=== PATIENT | female | born 1995 | race Caucasian/White ===

== ENCOUNTER 2016-12-23 01:35 | Inpatient (IN) | payer MEDICAID ==
[~2016-12-23] VITALS: Ht 154.9 cm; Wt 80.9 kg
[~2016-12-23 01:35] MED LIST: ASPI-664 PO; FOLI-49 PO; PRENAT PO
[2016-12-23 02:01] VITALS: Ht 154.9 cm; Wt 80.9 kg
[2016-12-23 02:02] VITALS: BP 113/49; PULSE 104; RESP 18
[2016-12-23 03:07] LABS: ADD UMIC YES; URINE BILIRUBIN (Dip) NEGATIVE (NEGATIVE); URINE BLOOD (Dip) 3+ (NEGATIVE); URINE COLOR LT. YELLOW (YELLOW); URINE GLUCOSE (Dip) NEGATIVE (NEGATIVE); URINE KETONES (Dip) NEGATIVE (NEGATIVE); URINE LEUKOCYTE ESTERASE (Dip) 1+ (NEGATIVE); URINE NITRITE (Dip) NEGATIVE (NEGATIVE); URINE TOTAL PROTEIN (Dip) NEGATIVE (NEGATIVE); URINE UROBILINOGEN (Dip) 0.2 E.U./dL (0.1-1.0)
[2016-12-23 03:23] LABS: SQUAMOUS EPITHELIAL CELL,UR MANY; URINE RBCS >200 /HPF (0)
[2016-12-23 03:24] LABS: BACTERIA,URINE MANY
[2016-12-23] MEDS ORDERED: KETOROLAC 30 MG INJ IM STA (03:31)
[2016-12-23] MEDS ORDERED: CEFAZOLIN 2 GM/50 ML (PMX) 50 ML IVPB ONE (04:00)
[2016-12-23] MEDS ORDERED: ACETAMINOPHEN 1000MG/100ML IV 100 ML IVPB ONE (04:00)
--- NOTE | 2016-12-23 04:12 | RADRPT ---
PROCEDURE: ULTRASOUND RENAL CLINICAL INDICATION: 21-year-old female with flank pain. TECHNIQUE: Multiple sonographic images of the kidneys were obtained. The images were reviewed on a PACS workstation. COMPARISON: None. FINDINGS: The kidneys are well visualized. The right kidney measures 11.2 cm in maximal length. The left kidne y measures 12.7 cm in maximal length. There are no focal areas of abnormal echogenicity. There is mi ld left-sided hydronephrosis. The urinary bladder has a small volume of urine without evidence for internal echoes or shadowing stones. IMPRESSION: Mild left-sided hydronephrosis. .Marcelo Shaffer MD, MD Date Time Electronically viewed and signed by .Marcelo Shaffer MD, on 12/23/2016 04:12 .M/
[2016-12-23] MEDS: LACTATED RINGER'S 1,000 ML IV SCH ×3 (04:19→20:13)
[2016-12-23] MEDS ORDERED: LACTATED RINGER'S 1,000 ML IV SCH (06:09)
--- NOTE | 2016-12-23 06:26 | TRIAGE ---
OB Triage Datetime Report Generated by CPN: 12/23/2016 06:26 Datetime: 12/23/2016 05:05 Pain Assessment Pain Scale: 6 Pain Presence: Constant Pain Type: Sharp; Ache Pain Location: Back Pain Goal: 3 Pain Relief Measures: Pain Medication Given; Comfort Measures Pain Assessment Comments: pt. states pain has decreased. Datetime: 12/23/2016 04:51 Stage of : OB Triage Labor Evaluation Frequency: 0 Monitor Mode: External Duration (sec)2399: 0 Pattern: Normal: <= 5 Contractions in 10 Minutes Resting Tone [place]: Relaxed Contraction Comments: uterine irritiability noted pt denies feeling uc's or cramping. Heart Rate FHR Baseline Rate: 130 Monitor Mode: External US Variability: Moderate 6-25 bpm Accelerations: 15X15 Decelerations: None Category: Category I Datetime: 12/23/2016 03:37 Labor Evaluation Frequency: x2 Monitor Mode: External Duration (sec)2399: 60-70 Pattern: Normal: <= 5 Contractions in 10 Minutes Resting Tone [place]: Relaxed Heart Rate FHR Baseline Rate: 135 Monitor Mode: External US Variability: Moderate 6-25 bpm Accelerations: 15X15 Decelerations: None Category: Category I Pain Assessment Pain Scale: 8 Pain Presence: Constant Pain Type: Sharp Pain Location: Back Pain Goal: 5 Pain Relief Measures: Comfort Measures Datetime: 12/23/2016 02:40 Labor Evaluation Frequency: x1 Monitor Mode: External Duration (sec)2399: 50 Quality: Mild Pattern: Normal: <= 5 Contractions in 10 Minutes Resting Tone [place]: Relaxed Contraction Comments: uterine irritiability noted. pt denies feeling any cramping or uc's. Heart Rate FHR Baseline Rate: 135 Monitor Mode: External US Variability: Moderate 6-25 bpm Accelerations: 15X15 Decelerations: None Category: Category I Datetime: 12/23/2016 02:22 Stage of : OB Triage Datetime: 12/23/2016 02:13 Stage of : OB Triage Datetime: 12/23/2016 01:53 Stage of : OB Triage Assessment Type: Triage Maternal Assessment Level of Consciousness: Fully Conscious DTR's/Clonus: DTRs 2+; No Clonus Headache: Temporal Blurred Vision: No Respiratory Effort: Unlabored Nausea/Vomiting: Denies RUQ Epigastric Pain: Denies Lower Extremities Edema: None Degree: None Upper Extremities Edema: None Degree: None Facial Edema: None Fall Risk Assessment History of Falling: (0) No Secondary Diagnosis: (0) No Ambulatory Aid: (0) Bedrest/Nurse Assist IV Therapy: (0) No Gait: (0) Normal/Bedrest/Immobile Mental Status: (0) Oriented to Own Ability Fall Score: 0 Fall Risk Score Definition: No Risk: No action required Labor Evaluation Frequency: 0 Monitor Mode: External Duration (sec)2399: 0 Pattern: Normal: <= 5 Contractions in 10 Minutes Resting Tone [place]: Relaxed Heart Rate FHR Baseline Rate: 135 Monitor Mode: External US Variability: Moderate 6-25 bpm Accelerations: 15X15 Decelerations: None Category: Category I Pain Assessment Pain Scale: 9 Pain Presence: Constant Pain Type: Sharp Pain Location: Back Pain Goal: 5 Pain Relief Measures: Comfort Measures Datetime: 12/23/2016 01:38 Time of Arrival: 12/23/2016 01:38 EGA: 29.6 Arrived By: Wheelchair Arrived From: Home Chief Complaint: back pain for 4 days Movement: Present Contractions: Denies/Absent Rupture of Membranes: Denies Vaginal Bleeding: None Vaginal Discharge: Denies Recent Sexual Intercouse: Denies Abdominal Trauma: Not Applicable Patient Complaints: Back Pain Time Provider Notified: 12/23/2016 02:15 Provider Notified: Eshaghian Initial Plan: NST Datetime: 11/08/2016 12:56 Labor Evaluation Frequency: OCCAS Monitor Mode: External Duration (sec)2399: 50 Quality: Mild Pattern: Normal: <= 5 Contractions in 10 Minutes Resting Tone [place]: Relaxed Heart Rate FHR Baseline Rate: 135 Monitor Mode: External US FHR Baseline Changes: No Baseline Change Variability: Moderate 6-25 bpm Accelerations: 15X15 Decelerations: None Category: Category I Datetime: 11/08/2016 12:00 Labor Evaluation Frequency: 0 Pattern: Normal: <= 5 Contractions in 10 Minutes Resting Tone [place]: Relaxed Heart Rate FHR Baseline Rate: 135 Monitor Mode: External US FHR Baseline Changes: No Baseline Change Variability: Moderate 6-25 bpm Accelerations: 15X15 Decelerations: None Category: Category I Datetime: 11/08/2016 11:03 Labor Evaluation Frequency: 0 Pattern: Normal: <= 5 Contractions in 10 Minutes Resting Tone [place]: Relaxed Heart Rate FHR Baseline Rate: 135 Monitor Mode: External US Variability: Moderate 6-25 bpm Accelerations: 15X15 Decelerations: None Category: Category I Datetime: 11/08/2016 10:34 Assessment Type: Admission Assessment Maternal Assessment Level of Consciousness: Fully Conscious DTR's/Clonus: DTRs 2+; No Clonus Headache: Denies Blurred Vision: No Respiratory Effort: Unlabored; Regular Rhythm; Equal Expansion Breath Sounds, Left: Clear and Equal Breath Sounds, Right: Clear and Equal Nausea/Vomiting: Denies RUQ Epigastric Pain: Denies Lower Extremities Edema: None Degree: None Upper Extremities Edema: None Degree: None Facial Edema: None Fall Risk Assessment History of Falling: (0) No Secondary Diagnosis: (0) No Ambulatory Aid: (0) Bedrest/Nurse Assist IV Therapy: (0) No Gait: (0) Normal/Bedrest/Immobile Mental Status: (0) Oriented to Own Ability Fall Score: 0 Fall Risk Score Definition: No Risk: No action required Datetime: 11/08/2016 10:33 Time of Arrival: 11/08/2016 10:12 EGA: 23.3 Arrived By: Ambulatory Arrived From: Home Chief Complaint: LEAKING Movement: Decreased Contractions: Denies/Absent Rupture of Membranes: Denies Vaginal Bleeding: None Vaginal Discharge: Denies Recent Sexual Intercouse: Yes Abdominal Trauma: Not Applicable Patient Complaints: Other Time Provider Notified: 11/08/2016 10:58 Provider Notified: DR DE LEON Initial Plan: NST, CERVICAL LENGHT AND RODRI Datetime: 10/22/2016 07:50 Fall Score: 0 Fall Risk Score Definition: No Risk: No action required Datetime: 10/22/2016 07:49 EGA: 21.0 Additional Patient Complaints: PT YET TO FEEL FM DUE TO GESTATIONAL AGE.
--- NOTE | 2016-12-23 06:59 | HP ---
DATE OF ADMISSION: 12/23/2016 HISTORY OF PRESENT ILLNESS: The patient is a 21-year-old 1 with intrauterine at 2 9 weeks 6 days. Estimated date of confinement is 03/04/2017, complaining of back pain for 4 days. She vomited once. She is also reporting some lower pelvic pain at the midline. She denies any dysu yue. She said she had a fever Friday morning. She did not check her temperature. No hematuria. PAST MEDICAL HISTORY: Negative. PAST SURGICAL HISTORY: None. ALLERGIES: NO KNOWN DRUG ALLERGIES. PHYSICAL EXAMINATION: VITAL SIGNS: Blood pressure 113/49, temperature 98.2. BACK: On examination, there is 2 to 3+ left CVA tenderness, right none. ABDOMEN: Soft, nontender, gravid. EXTREMITIES: Nontender, no edema. ASSESSMENT: 1. Intrauterine at 29 weeks 6 days. 2. Presumed left pyelonephritis. PLAN: Admit to [address] [place] [address], IV Ancef 2 grams q. 8 hours, a CBC, give her [place] 5/325 one tab every 4 hours p.r.n. Of note, a renal ultrasound showed both kidneys measuring normally, no stone, slight hydronephrosis on the left side, otherwise normal. Urinalysis is clear with negative nitrites, 3+ blood, 1+ leukoc yte esterase with many bacteria, white blood cells, and red blood cells. Dictated By: JAMARCUS HEDRICK/MARY JANE Conf#: [id number] DID#: [id number]
[2016-12-23] MEDS: HYDROCODONE/APAP (5/325) TAB PO PRN ×5 (07:36→20:18)
[2016-12-23 07:47] LABS: BASOPHILS % 0.3 % (0.0-2.0); EOSINOPHILS # 0.1 10^3/ul (0.0-0.5); EOSINOPHILS % 0.5 % (0.0-7.0); HEMATOCRIT 30.8 % (37.0-47.0); HEMOGLOBIN 10.6 g/dl (12.0-16.0); LYMPHOCYTES # 1.5 10^3/ul (0.8-2.9); MEAN CORPUSCULAR HEMOGLOBIN 30.4 pg (29.0-33.0); MEAN CORPUSCULAR HGB CONC 34.6 g/dl (32.0-37.0); MEAN CORPUSCULAR VOLUME 87.8 fl (72.0-104.0); MONOCYTE # 0.9 10^3/ul (0.3-0.9); MONOCYTES % 7.3 % (0.0-13.0); NEUTROPHIL # 10.1 10^3/ul (1.6-7.5); NEUTROPHILS % 79.9 % (30.0-74.0); PLATELET COUNT 300 10^3/UL (140-440); RED BLOOD COUNT 3.51 10^6/ul (4.20-5.40); UNCORRECTED WBC 12.6 10^3/ul (4.8-10.8); WHITE BLOOD COUNT 12.6 10^3/ul (4.8-10.8)
[2016-12-23 07:57] LABS: CONDITION 1
[2016-12-23] MEDS: ONDANSETRON 4 MG TAB PO PRN ×3 (08:59→23:50)
[2016-12-23] MEDS ORDERED: MULTIVIT/MIN/FOLATE/IRON/PREN TAB PO SCH (09:00)
[2016-12-23] MEDS: CEFAZOLIN 2 GM/50 ML (PMX) 50 ML IV SCH ×2 (12:29→21:22)
[2016-12-24] MEDS: HYDROCODONE/APAP (5/325) TAB PO PRN ×3 (00:30→09:02)
[2016-12-24] MEDS: LACTATED RINGER'S 1,000 ML IV SCH ×3 (03:36→20:30)
[2016-12-24] MEDS: CEFAZOLIN 2 GM/50 ML (PMX) 50 ML IV SCH (06:00)
--- NOTE | 2016-12-24 07:11 | QN ---
Documentation Comment patient seen and evaluated complaining of left flank pain vs stable afebrile abod grivid, left cva tenderness extremity no edema no calf tendernss fhr cat 1 toco no ctx a/ iup at 30 ga, currently on antibiotic tx for pylonephritis p/ continue present managment f/u urine culture social work consult for history of marijuana use EVELIN DE LEON MD Dec 24, 2016 07:11
[2016-12-24] MEDS: ONDANSETRON 4 MG TAB PO PRN ×2 (08:25→14:13)
[2016-12-24 08:48] LABS: BARBITURATES NEGATIVE (NEGATIVE); BENZODIAZEPINES NEGATIVE (NEGATIVE); CANNABINOIDS NEGATIVE (NEGATIVE); COCAINE NEGATIVE (NEGATIVE)
[2016-12-24 08:50] LABS: OPIATES POSITIVE (NEGATIVE)
[2016-12-24] MEDS: FERROUS SULFATE (EC) 325 MG TAB PO SCH ×2 (09:01→21:11)
[2016-12-24] MEDS: MULTIVIT/MIN/FOLATE/IRON/PREN TAB PO SCH (09:02)
[2016-12-24] MEDS ORDERED: CEFTRIAXONE 2 GM INJ IVPB SCH (11:00)
[2016-12-24] MEDS ORDERED: ACETAMINOPHEN 325 MG TAB PO PRN (11:00)
[2016-12-24] MEDS: CEFTRIAXONE 1 GM/NS 50 ML IVPB SCH (11:26)
[2016-12-24] MEDS: SOD CHLORIDE 0.9% 1,000 ML IV SCH (20:30)
[2016-12-25] MEDS: LACTATED RINGER'S 1,000 ML IV SCH ×3 (04:30→21:10)
[2016-12-25] MEDS: SOD CHLORIDE 0.9% 1,000 ML IV SCH ×3 (05:06→21:14)
[2016-12-25] MEDS: morphine 4 MG/ML VIAL IV PRN ×2 (05:39→11:25)
--- NOTE | 2016-12-25 07:42 | QN ---
Documentation Comment patient seen and evaluated no complaints patient feels back pain has improved significantly since admission vs stable afebrile abd gravid nt, mild left cva tenderness extremity no edema no calft tenderness a/ iup at 30 wks ga, pyelonephritis currently on iv antibiotics p/ f.u urine culture continue present management EVELIN DE LEON MD Dec 25, 2016 07:42
[2016-12-25] MEDS: MULTIVIT/MIN/FOLATE/IRON/PREN TAB PO SCH (09:03)
[2016-12-25] MEDS: FERROUS SULFATE (EC) 325 MG TAB PO SCH ×2 (09:03→21:07)
[2016-12-25] MEDS: ONDANSETRON 4 MG TAB PO PRN ×3 (11:34→23:09)
[2016-12-25] MEDS: CEFTRIAXONE 1 GM/NS 50 ML IVPB SCH (12:18)
[2016-12-25] MEDS: HYDROCODONE/APAP (5/325) TAB PO PRN ×2 (13:37→16:36)
[2016-12-25] MEDS: HYDROCODONE/APAP (10/325) TAB PO PRN (20:19)
[2016-12-25] MEDS ORDERED: MEPERIDINE 50 MG INJ IM ONE (22:00)
[2016-12-26] MEDS: SOD CHLORIDE 0.9% 1,000 ML IV SCH ×3 (05:15→20:30)
[2016-12-26] MEDS: ONDANSETRON 4 MG TAB PO PRN ×2 (05:34→21:17)
[2016-12-26] MEDS: MEPERIDINE 50 MG INJ IM PRN ×2 (07:37→14:52)
[2016-12-26] MEDS: CEFTRIAXONE 1 GM/NS 50 ML IVPB SCH (11:27)
[2016-12-26] MEDS: FERROUS SULFATE (EC) 325 MG TAB PO SCH ×2 (11:27→20:39)
[2016-12-26] MEDS: MULTIVIT/MIN/FOLATE/IRON/PREN TAB PO SCH (11:27)
--- NOTE | 2016-12-26 14:34 | RADRPT ---
PROCEDURE: MRI abdomen without contrast CLINICAL INDICATION: Abdominal pain TECHNIQUE: An MRI of the abdomen was performed utilizing a high field MRI scanner with the following pulsed seq uences: Axial T2 fast spin-echo, axial T2 non-fat saturation fast spin-echo, axial T1 gradient echo in-phase and opposed-phase. Noncontrast fat sat T1-weighted images were also obtained. Coronal T2 and fat-saturated T2-weighted images were also obtained. COMPARISON: None FINDINGS: uterus is partially visualized with anterior placenta in cephalic presentation of the fetus. Fine detail of the structures cannot be assessed with this technique. There is trace bilateral pleural fluid present. There is bilateral mild hydronephrosis which appear symmetric extending to below the field of view a nd this may be related to compression from the gravid uterus. No significant visible. Nephric infl ammatory changes are present. There is uniform signal intensity of the liver without biliary ductal dilatation or gross evidence o f choledocholithiasis. The gallbladder is partially collapsed with no visible surrounding inflammat ory changes. The pancreatic parenchyma is partially obscured secondary to susceptibility. There is a mildly dilated air filled colon seen with distended / mildly dilated loops of small bowel in the upper abdomen that are indeterminate. There is trace free fluid within the abdomen. No duke ss enlarged lymph nodes are present. The aorta is grossly within normal limits. Flow void is seen in the portal vein and the hepatic vein. There is no acute osseous abnormality. IMPRESSION: Distended and mildly dilated small and large bowel is seen with air-fluid levels and this could repr esent an ileus possibly related to bowel inflammation or infection. Bilateral mild hydronephrosis is present which may be related to the gravid uterus. RPTAT: AA .Tad Crenshaw MD, MD Date Time Electronically viewed and signed by .Tad Crenshaw MD, MD on 12/26/2016 14:34 .J/
[2016-12-26] MEDS: HYDROCODONE/APAP (10/325) TAB PO PRN ×2 (16:58→21:13)
[2016-12-26] MEDS ORDERED: SENNA TAB PO PRN (19:30)
[2016-12-26] MEDS: LACTATED RINGER'S 1,000 ML IV SCH ×3 (20:30→22:15)
[2016-12-26] MEDS: DOCUSATE SODIUM 100 MG CAP PO SCH (20:39)
--- NOTE | 2016-12-26 20:40 | QN ---
Documentation Comment patient seen and evaluated complaining of left flank pain vs stable afebrile lung cta b/l abdom gravid, left cva tenderness extremity no edema no calf tenderness a/ iup at 30 wks ga 1/pylonophritis/ b/l hydronephrosis 2/ suspected ileus p/ continue iv antibiotic GI Consult tomorrow EVELIN DE LEON MD Dec 26, 2016 20:40
[2016-12-26] MEDS: CEFTAZIDIME 1GM/50 ML (PMX) 50 ML IVPB SCH (22:26)
[2016-12-27] MEDS: MEPERIDINE 50 MG INJ IM PRN ×2 (00:51→05:34)
[2016-12-27] MEDS: HYDROCODONE/APAP (10/325) TAB PO PRN ×5 (02:27→22:00)
[2016-12-27] MEDS: LACTATED RINGER'S 1,000 ML IV SCH ×4 (04:30→23:21)
[2016-12-27] MEDS: CEFTAZIDIME 1GM/50 ML (PMX) 50 ML IVPB SCH ×3 (05:34→21:50)
[2016-12-27] MEDS: ONDANSETRON 4 MG TAB PO PRN (05:42)
[2016-12-27 06:36] LABS: CREATININE 0.67 mg/dl (0.44-1.00)
[2016-12-27] MEDS: FERROUS SULFATE (EC) 325 MG TAB PO SCH ×2 (09:00→21:03)
[2016-12-27] MEDS: MULTIVIT/MIN/FOLATE/IRON/PREN TAB PO SCH (09:00)
--- NOTE | 2016-12-27 09:46 | CONS ---
Date/Time of Note Date/Time of Note DATE: 12/27/16 TIME: 09:35 Assessment/Plan Assessment/Plan Additional Assessment/Plan Abdominal pain Nausea Vomiting Constipation * Evaluate if secondary to UTI versus MRI finding of ileus * Continue clear diet * CMP * Stool OB * Bowel regimen UTI * Continue antibiotic treatment Intrauterine * Continue OB recommendations Further recommendations depend on clinical course Patient seen in collaboration with Dr. Hansen Consultation Date/Type/Reason Admit Date/Time Dec 23, 2016 at 06:00 Hx of Present Illness 21 YO F reports sharp LUQ abdominal that radiates to back for the last 2 weeks. Pt states that the pain began to worsen this past Friday. Pt reports increased nausea and vomiting. Pt denies hematemesis. Pt states last episode of non bloody bilious vomiting was yesterday. Pt reports fever on Friday and denies chills. Pt states the last time she had a bowel movement was four days ago. Pt states that when she voids the pain in abdomen improves but she denies odor from urine. Pt reports not completing abx treatemen for previous UTI that was treated here. Past Medical History Medical History: no pertinent history Past Surgical History Past Surgical Hx: no surgical history Social History Alcohol Use: none Exam/Review of Systems Vital Signs Vitals Intake and Output 12/26/16 12/26/16 12/27/16 15:00 23:00 07:00 Intake Total 300 ml 2475 ml Output Total 1650 ml Balance 300 ml 825 ml Exam Constitutional: alert, oriented, well developed Psych: nl mood/affect Head: normocephalic Eyes: EOMI, nl conjunctiva, nl lids, nl sclera ENMT: mucosa pink and moist, nl external ears & nose, nl lips & teeth, nl nasal mucosa & septum Respiratory: normal air movement Cardiovascular: regular rate and rhythm Gastrointestinal: soft, tender (diffuse) Neurological: HEARING AID ASSISTANT II-XII intact Results Result Diagram: 12/23/16 0649 12/27/16 0530 Results 24 hrs Laboratory Tests Test 12/27/16 05:30 Blood Urea Nitrogen 4 L Creatinine 0.67 Medications Medications Current Medications Lactated Ringer's (Lr) 1,000 ml @ 125 mls/hr Q8H IV Last administered on t 05:42; Admin Dose 125 MLS/HR; Start 12/23/16 at 04:30 Ondansetron HCl (Zofran Tab) 4 mg Q6H PRN PO NAUSEA AND/OR VOMITING Last administered on 12/27/16 05:42; Admin Dose 4 MG; Start 12/23/16 at 09:00 Ferrous Sulfate (Ferrous Sulfate (Ec)) 325 mg BID PO Last administered on 20:39; Admin Dose 325 MG; Start 12/24/16 at 09:00 Prenat Multivit/ Blow Molding Machine Operator/Iron/Folic Ac ( S) 1 tab DAILY PO Last administered on 12/26/16 11:27; Admin Dose 1 TAB; Start 12/24/16 at 09:00 Morphine Sulfate (morphine) 3 mg Q4H PRN IV PAIN LEVEL 6-10 Last administered on 12/25/16 11:25; Admin Dose 3 MG; Start 12/24/16 at 11:00 Acetaminophen (Tylenol Tab) 650 mg Q6H PRN PO PAIN AND OR ELEVATED TEMP Last administered on 12/25/16 12:47; Admin Dose 650 MG; Start 12/24/16 at 11:00 Acetaminophen/ Hydrocodone Bitart ([place] (5/325)) 1 tab Q4H PRN PO PAIN LEVEL 7 -10 Last administered on 12/25/16 16:36; Admin Dose 1 TAB; Start 12/25/16 at 13: 30 Acetaminophen/ Hydrocodone Bitart ([place] (10/325)) 2 tab Q4H PRN PO PAIN Last administered on 12/27/16 08:29; Admin Dose 2 TAB; Start 12/25/16 at 17:30 Meperidine HCl 50 mg 50 mg Q4H PRN IM PAIN Last administered on 12/27/16 05:34 ; Admin Dose 50 MG; Start 12/26/16 at 00:30 Ceftazidime (Fortaz 1gm/50 ml (Pmx)) 50 ml @ 100 mls/hr Q8 IVPB Last administered on 12/27/16 05:34; Admin Dose 100 MLS/HR; Start 12/26/16 at 22:00 Docusate Sodium (Colace) 100 mg BID PO Last administered on 12/26/16 20:39; Admin Dose 100 MG; Start 12/26/16 at 21:00 Senna (Senokot) 2 tab BID PRN PO CONSTIPATION Last administered on 12/26/16t 20: 12; Admin Dose 2 TAB; Start 12/26/16 at 19:30 ROBIN AVILEZ Dec 27, 2016 09:45
[2016-12-27] MEDS ORDERED: BISACODYL 10 MG SUPP PR PRN (10:00)
[2016-12-27] MEDS ORDERED: POLYETHYLENE GLYCOL 17 GM PACKET GTB SCH (10:00)
[2016-12-27] MEDS: DOCUSATE SODIUM 100 MG CAP PO SCH ×2 (11:52→21:03)
[2016-12-27 13:11] LABS: HAAIG REFLEX REFLEX FILED
[2016-12-27 13:27] LABS: ALBUMIN 2.7 g/dl (3.3-4.9); CHLORIDE 101 mmol/L (97-110)
[2016-12-27 13:28] LABS: POTASSIUM 3.4 mmol/L (3.5-5.1); SODIUM 135 mmol/L (135-144)
[2016-12-27 13:30] LABS: ALANINE AMINOTRANSFERASE 33 IU/L (13-69); ALBUMIN/GLOBULIN RATIO 1.08; ALKALINE PHOSPHATASE 122 IU/L (42-121); AMYLASE 37 U/L (11-123); ANION GAP 16 (8-16); ASPARTATE AMINO TRANSFERASE 26 IU/L (15-46); BILIRUBIN,INDIRECT 0.5 mg/dl (0-1.1); BILIRUBIN,TOTAL 0.5 mg/dl (0.2-1.3); BLOOD UREA NITROGEN 3 mg/dl (7-20); CARBON DIOXIDE 21 mmol/L (21-31); CREATININE 0.61 mg/dl (0.44-1.00); GLUCOSE 61 mg/dl (70-220); TOTAL PROTEIN 5.2 g/dl (6.1-8.1)
[2016-12-27 13:31] LABS: CALCIUM 8.4 mg/dl (8.4-10.2)
[2016-12-27 14:19] LABS: HEPATITIS B CORE ANTIBODY NEGATIVE (NEGATIVE)
[2016-12-27] MEDS: POLYETHYLENE GLYCOL 17 GM PACKET PO SCH (21:21)
[2016-12-28] MEDS: CEFTAZIDIME 1GM/50 ML (PMX) 50 ML IVPB SCH ×3 (06:14→21:53)
[2016-12-28] MEDS: HYDROCODONE/APAP (10/325) TAB PO PRN (06:24)
[2016-12-28] MEDS: LACTATED RINGER'S 1,000 ML IV SCH ×2 (07:44→20:34)
--- NOTE | 2016-12-28 08:35 | CONS ---
Date/Time of Note Date/Time of Note DATE: 12/28/16 TIME: 08:34 Assessment/Plan Assessment/Plan Chief Complaint/Hosp Course 21 YO F reports sharp LUQ abdominal that radiates to back for the last 2 weeks. Pt states that the pain began to worsen this past Friday. Pt reports increased nausea and vomiting. Pt denies hematemesis. Pt states last episode of non bloody bilious vomiting was yesterday. Pt reports fever on Friday and denies chills. Pt states the last time she had a bowel movement was four days ago. Pt states that when she voids the pain in abdomen improves but she denies odor from urine. Pt reports not completing abx treatemen for previous UTI that was treated here. Problems: Additional Assessment/Plan Abdominal pain Nausea Vomiting Constipation * Evaluate if secondary to UTI versus MRI finding of ileus * Advance diet as tolerate * Review lab * Stool OB, negative * Bowel regimen UTI * Continue antibiotic treatment Intrauterine * Continue OB recommendations Further recommendations depend on clinical course Patient seen in collaboration with Dr. Hansen Consultation Date/Type/Reason Admit Date/Time Dec 23, 2016 at 06:00 Initial Consult Date Type of Consultation: GI 24 HR Interval Summary Free Text/Dictation Reports bowel movements yesterday Repeat MRI ordered Will advance diet as tolerated Exam/Review of Systems Vital Signs Vitals Intake and Output 12/27/16 12/27/16 12/28/16 15:00 23:00 07:00 Intake Total 1045 ml 1090 ml 1215 ml Output Total 800 ml 800 ml 700 ml Balance 245 ml 290 ml 515 ml Exam Constitutional: alert, oriented, well developed Psych: nl mood/affect Head: normocephalic Eyes: EOMI, nl conjunctiva, nl lids, nl sclera ENMT: mucosa pink and moist, nl external ears & nose, nl lips & teeth, nl nasal mucosa & septum Respiratory: normal air movement Cardiovascular: regular rate and rhythm Gastrointestinal: soft, tender (diffuse) Neurological: PESTICIDE APPLICATOR II-XII intact Results Result Diagram: 12/27/16 1215 Results 24 hrs Laboratory Tests Test 12/27/16 11:50 12/27/16 12:15 Stool Occult Blood NEGATIVE Alanine Aminotransferase (ALT/SGPT) 33 Albumin 2.7 L Albumin/Globulin Ratio 1.08 Alkaline Phosphatase 122 H Amylase Level 37 Anion Gap 16 Aspartate Amino Transf (AST/SGOT) 26 Blood Urea Nitrogen 3 L Calcium Level 8.4 Carbon Dioxide Level 21 Chloride Level 101 Creatinine 0.61 Direct Bilirubin 0.00 Globulin 2.50 Glucose Level 61 L Hepatitis B Core Total Antibody NEGATIVE Hepatitis B Surface Antigen NEGATIVE Hepatitis C Antibody NEGATIVE Indirect Bilirubin 0.5 Lipase 32 Potassium Level 3.4 L Sodium Level 135 Total Bilirubin 0.5 Total Protein 5.2 L Medications Medications Current Medications Lactated Ringer's (Lr) 1,000 ml @ 125 mls/hr Q8H IV Last administered on 07:44; Admin Dose 125 MLS/HR; Start 12/23/16 at 04:30 Ondansetron HCl (Zofran Tab) 4 mg Q6H PRN PO NAUSEA AND/OR VOMITING Last administered on 12/27/16 05:42; Admin Dose 4 MG; Start 12/23/16 at 09:00 Ferrous Sulfate (Ferrous Sulfate (Ec)) 325 mg BID PO Last administered on 21:03; Admin Dose 325 MG; Start 12/24/16 at 09:00 Prenat Multivit/ [place]/Iron/Folic Ac ( S) 1 tab DAILY PO Last administered on 12/26/16 11:27; Admin Dose 1 TAB; Start 12/24/16 at 09:00 Morphine Sulfate (morphine) 3 mg Q4H PRN IV PAIN LEVEL 6-10 Last administered on 12/25/16 11:25; Admin Dose 3 MG; Start 12/24/16 at 11:00 Acetaminophen (Tylenol Tab) 650 mg Q6H PRN PO PAIN AND OR ELEVATED TEMP Last administered on 12/25/16 12:47; Admin Dose 650 MG; Start 12/24/16 at 11:00 Acetaminophen/ Hydrocodone Bitart ([place] (5/325)) 1 tab Q4H PRN PO PAIN LEVEL 7 -10 Last administered on 12/25/16 16:36; Admin Dose 1 TAB; Start 12/25/16 at 13: 30 Acetaminophen/ Hydrocodone Bitart ([place] (10/325)) 2 tab Q4H PRN PO PAIN Last administered on 12/28/16 06:24; Admin Dose 2 TAB; Start 12/25/16 at 17:30 Meperidine HCl 50 mg 50 mg Q4H PRN IM PAIN Last administered on 12/27/16 05:34 ; Admin Dose 50 MG; Start 12/26/16 at 00:30 Ceftazidime (Fortaz 1gm/50 ml (Pmx)) 50 ml @ 100 mls/hr Q8 IVPB Last administered on 12/28/16 06:14; Admin Dose 100 MLS/HR; Start 12/26/16 at 22:00 Docusate Sodium (Colace) 100 mg BID PO Last administered on 12/27/16 21:03; Admin Dose 100 MG; Start 12/26/16 at 21:00 Senna (Senokot) 2 tab BID PRN PO CONSTIPATION Last administered on 12/26/16 20: 12; Admin Dose 2 TAB; Start 12/26/16 at 19:30 Bisacodyl (Dulcolax Supp) 10 mg DAILY PRN DC CONSTIPATION Last administered on 12/27/16 10:21; Admin Dose 10 MG; Start 12/27/16 at 10:00 Polyethylene Glycol (Miralax) 17 gm BID PO Last administered on 12/27/16 21:21 ; Admin Dose 17 GM; Start 12/27/16 at 21:00 ROBIN AVILEZ Dec 28, 2016 08:35
[2016-12-28] MEDS: MULTIVIT/MIN/FOLATE/IRON/PREN TAB PO SCH (08:47)
[2016-12-28] MEDS: DOCUSATE SODIUM 100 MG CAP PO SCH ×2 (08:47→21:26)
[2016-12-28] MEDS: FERROUS SULFATE (EC) 325 MG TAB PO SCH ×2 (08:47→21:26)
[2016-12-28] MEDS: POLYETHYLENE GLYCOL 17 GM PACKET PO SCH ×2 (08:47→21:00)
--- NOTE | 2016-12-28 12:13 | QN ---
Documentation Comment pt feeling better no back pain vss no fevers sp bm A/p for MRI for eval of illius. continue care GAVIN HOLGUIN MD Dec 28, 2016 12:13
[2016-12-28 15:01] LABS: BASOPHILS % 0.2 % (0.0-2.0); EOSINOPHILS # 0.2 10^3/ul (0.0-0.5); EOSINOPHILS % 1.7 % (0.0-7.0); HEMATOCRIT 28.7 % (37.0-47.0); HEMOGLOBIN 9.7 g/dl (12.0-16.0); LYMPHOCYTES # 1.3 10^3/ul (0.8-2.9); LYMPHOCYTES % 10.8 % (18.0-55.0); MEAN CORPUSCULAR HEMOGLOBIN 30.1 pg (29.0-33.0); MEAN CORPUSCULAR HGB CONC 33.6 g/dl (32.0-37.0); MEAN CORPUSCULAR VOLUME 89.6 fl (72.0-104.0); MEAN PLATELET VOLUME 7.3 fl (7.4-10.4); MONOCYTES % 8.8 % (0.0-13.0); NEUTROPHIL # 9.4 10^3/ul (1.6-7.5); NEUTROPHILS % 78.5 % (30.0-74.0); PLATELET COUNT 297 10^3/UL (140-440); RED BLOOD COUNT 3.21 10^6/ul (4.20-5.40); RED CELL DISTRIBUTION WIDTH 14.8 % (11.5-14.5); UNCORRECTED WBC 11.9 10^3/ul (4.8-10.8); WHITE BLOOD COUNT 11.9 10^3/ul (4.8-10.8)
[2016-12-28 15:23] LABS: CONDITION 1
[2016-12-28 15:24] LABS: LH ANALYZER COMMENTS 1
--- NOTE | 2016-12-28 17:06 | RADRPT ---
PROCEDURE: MRI abdomen / MRCP CLINICAL INDICATION: Flank and abdominal pain. Evaluate small bowel ileus versus obstruction TECHNIQUE: MRI of the abdomen is performed without contrast utilizing axial T2 and T2 fat suppress ion sequences as well as in and out of phase imaging. COMPARISON: MRI 12/26/2016 FINDINGS: Visualized lower thorax: There is no evidence for consolidation or pleural effusion. Liver: Normal in size, contour and signal intensity with no evidence for masses or ductal dilatatio n. Gallbladder: Normal in caliber with no filling defects to suggest cholelithiasis and no wall thicke myra. There is no pericholecystic inflammation. Common bile duct: There is no filling defect to suggest choledocholithiasis. The caliber of the du ct is of normal estimated at 3 mm. Pancreas: There is no finding to suggest pancreatitis, mass or ductal dilatation. Spleen: Normal in size with no masses evident. Adrenal glands: Unremarkable bilaterally. Kidneys: Mild bilateral hydronephrosis is again noted. The kidneys are normal in size and symmetric without perinephric collection, the visualized ureters are mildly dilated. A gravid uterus is agai n noted with the fetus in cephalic presentation the placenta anterior and to the right. Stomach, visualized small bowel and visualized large intestine: Previously suggested small bowel ile us has resolved, the included portions of the small bowel and colon are now normal in caliber and th ere is no evidence of obstruction. A trace amount appear hepatic ascites is noted Abdominal aorta: Normal in caliber estimated at 2 cm. Inferior vena cava: Normal. Vertebral bodies and osseous structures: Normal. Musculature and soft tissues: Some incidental dependent edema within the subcutaneous fat of the lo wer lumbar spine region is noted, likely from bedrest. RPTAT:HJJR IMPRESSION: 1. Interval resolution of the ileus pattern compared to the prior MRI of 12/26/2016. There is no e vidence currently of ileus or obstruction. 2. Stable mild bilateral hydroureteronephrosis related to the gravid state. 3. Trace amount of perihepatic ascites. Physician Teresita Date Time Electronically viewed and signed by Physician Teresita on 12/28/2016 17:06 JR/
--- NOTE | 2016-12-28 18:40 | PN ---
Date/Time of Note Date/Time of Note DATE: 12/28/16 TIME: 18:35 Assessment/Plan Lines/Catheters IV Catheter Type (from Nrsg): Peripheral IV Assessment/Plan Chief Complaint/Hosp Course 1. Abdominal pain with constipation 2nd mild paralytic ileus 2nd UTI/Pyelo. Improving. -abx -judicious fluid management -ambulate -chew gum -monitor -diet as tolerated 2. 30 weeks with IUP -OB f/u and care 3. Leukocytosis 2nd UTI and above. Improving -abx 4. BMI 34 with -nutritional optimization -exercise as tolerated 5. Hypoalbuminemia -nutritional optimization 6. Anemia -monitor 7. Hypokalemia -replete Thank you very much for consulting me in this patient's care, Dictation # [id number] Problems: Subjective 24 Hr Interval Summary Bowel function. No f/c. Pain improving. No cp/sob. No cough. No granda/dizzy/ visual or neuro changes. No dysuria. Exam/Review of Systems Vital Signs Vitals Intake and Output 12/27/16 12/27/16 12/28/16 15:00 23:00 07:00 Intake Total 1045 ml 1090 ml 1215 ml Output Total 800 ml 800 ml 700 ml Balance 245 ml 290 ml 515 ml Exam Constitutional: alert, oriented, other (BMI 34 with 30wk IUP), No distress Psych: nl mood/affect, No anxiety Head: atraumatic, normocephalic Eyes: EOMI, PERRL, nl conjunctiva, No icteric ENMT: mucosa pink and moist, nl external ears & nose Neck: non-tender, supple, No jvd Respiratory: normal air movement, No congested cough, No labored breathing Cardiovascular: nl pulses, regular rate and rhythm, No edema Gastrointestinal: distended, soft, tender (min), No rebound or guarding Musculoskeletal: nl extremities to inspection, nl gait and stance, No joint tenderness Extremities: normal pulses, No calf tenderness, No cyanosis Neurological: nl mental status, nl speech, nl strength Skin: nl turgor, No diaphoresis, No rash or lesions Lymph: nl lymph nodes Results Result Diagram: 12/28/16 1433 12/27/16 1215 BRIAN TIDWELL MD Dec 28, 2016 18:40
[2016-12-29] MEDS: HYDROCODONE/APAP (10/325) TAB PO PRN (03:43)
[2016-12-29] MEDS: LACTATED RINGER'S 1,000 ML IV SCH ×2 (05:04→13:11)
--- NOTE | 2016-12-29 05:12 | CONS ---
DATE OF ADMISSION: 12/23/2016 DATE OF CONSULTATION: 12/27/2016 CONSULTATION TYPE: Surgical. REFERRING PHYSICIAN: Terell Agosto MD. CHIEF COMPLAINT 1. Abdominal pain. 2. Nausea. 3. Vomiting. 4. Constipation with obstipation. 5. Urinary tract infection and possible pyelonephritis. 6. Intrauterine . HISTORY OF PRESENT ILLNESS: Breanna Retana is a 21-year-old female who is 30 weeks and was admitted by the OB service after she presented with abdominal pain and back pain for 4 days. Sh flor denies any chills, but had fevers. No chest pain. No shortness of breath. No visual or neurolog ic changes. No dysuria or vaginal discharge. No hematuria. No blood per mouth or rectum. She is constipated. No trauma or sick contacts. Her workup identified her to be afebrile; however, tachyc ardic. Blood work showed leukocytosis. Her urine culture is positive for Pseudomonas, and the lorie ent had an abdominal MRI, identifying distended and mildly dilated small and large bowel with air-fl uid levels with bilateral mild hydronephrosis, and surgical consult is obtained for further evaluati on and treatment. PAST MEDICAL HISTORY 1. A 30-week intrauterine . 2. Pyelonephritis/urinary tract infection 3. Leukocytosis. 4. Hypokalemia. 5. Hypoalbuminemia. 6. Anemia. 7. Paralytic ileus. 8. Nausea and vomiting. PAST SURGICAL HISTORY: Denies. MEDICATIONS: As per MAR. ALLERGIES: NONE. SOCIAL HISTORY: Denies alcohol, drugs, or tobacco. FAMILY HISTORY: Noncontributory. REVIEW OF SYSTEMS: A 12-point review of systems negative unless addressed in the HPI. PHYSICAL EXAMINATION VITAL SIGNS: 98.2, pulse 80s to 100s, blood pressure 113/49. GENERAL: In no acute distress, somewhat uncomfortable. HEAD, EARS, EYES, NOSE, AND THROAT: Pupils equal and reactive. No scleral icterus. Mucous membran es are moist. NECK: Supple. No JVD. PULMONARY: Normal respiratory effort. No wheezing. CARDIAC: S1 and S2 present. ABDOMEN: Gravid. BMI 34. EXTREMITIES: No edema. VASCULAR: Capillary refill is less than 2 seconds. NEUROLOGIC: Alert and oriented. Moves all 4 extremities grossly. LABORATORY AND RADIOGRAPHIC DATA: As per the chart and HPI. ASSESSMENT AND PLAN: Breanna Retnaa is a 21-year-old female. 1. Constipation and some obstipation, probably secondary to paralytic ileus, secondary to acute uri nary tract infection/pyelonephritis. Continue antibiotics, judicious fluid management, and ambulate . Chew gum and close monitoring. 3. Thirty weeks with intrauterine ; defer to OB. 4. Leukocytosis. secondary to a urinary tract infection and above. Continue antibiotics. 5. Body mass index 34 with . Encourage nutritional optimization and exercise as tolerated . 6. Hypoalbuminemia. Encourage nutritional optimization. 7. Anemia. Continue to monitor. Thank you very much for consulting me in this patient's care. Dictated By: BRIAN EASLEY/MARY JANE Conf#: [id number] DID#: [id number]
[2016-12-29] MEDS: CEFTAZIDIME 1GM/50 ML (PMX) 50 ML IVPB SCH ×2 (05:39→13:27)
--- NOTE | 2016-12-29 08:43 | CONS ---
Date/Time of Note Date/Time of Note DATE: 12/29/16 TIME: 08:42 Assessment/Plan Assessment/Plan Additional Assessment/Plan Abdominal pain Nausea Vomiting Constipation * Evaluate if secondary to UTI versus MRI finding of ileus * MRI 12-28-13: Interval resolution of the ileus pattern compared to the prior MRI of 12/26/2016. There is no evidence currently of ileus or obstruction. * Advance diet as tolerate * Review lab * Stool OB, negative * Bowel regimen UTI * Continue antibiotic treatment Intrauterine * Continue OB recommendations Further recommendations depend on clinical course Patient seen in collaboration with Dr. Hansen Consultation Date/Type/Reason Admit Date/Time Dec 23, 2016 at 06:00 Type of Consultation: GI 24 HR Interval Summary Free Text/Dictation Edis diet Denies abdominal pain, n/v Repeat MRI notes resolution of ileus Stable from GI standpoint Exam/Review of Systems Vital Signs Vitals Intake and Output 12/28/16 12/28/16 12/29/16 15:00 23:00 07:00 Intake Total 1170 ml 1530 ml 1290 ml Output Total 400 ml 1400 ml 400 ml Balance 770 ml 130 ml 890 ml Exam Constitutional: alert, oriented, well developed Psych: nl mood/affect Head: normocephalic Eyes: EOMI, nl conjunctiva, nl lids, nl sclera ENMT: mucosa pink and moist, nl external ears & nose, nl lips & teeth, nl nasal mucosa & septum Respiratory: normal air movement Cardiovascular: regular rate and rhythm Gastrointestinal: soft, tender (diffuse) Neurological: MANAGER ATHLETICS II-XII intact Results Result Diagram: 12/28/16 1433 12/27/16 1215 Results 24 hrs Laboratory Tests Test 12/28/16 14:33 Basophils # 0.0 Basophils % 0.2 Blood Morphology Comment Eosinophils # 0.2 Eosinophils % 1.7 Hematocrit 28.7 L Hemoglobin 9.7 L Lymphocytes # 1.3 Lymphocytes % 10.8 L Mean Corpuscular Hemoglobin 30.1 Mean Corpuscular Hemoglobin Concent 33.6 Mean Corpuscular Volume 89.6 Mean Platelet Volume 7.3 L Monocytes # 1.0 H Monocytes % 8.8 Neutrophils # 9.4 H Neutrophils % 78.5 H Nucleated Red Blood Cells # 0.0 Nucleated Red Blood Cells % 0.0 Platelet Count 297 Red Blood Count 3.21 L Red Cell Distribution Width 14.8 H White Blood Count 11.9 H Medications Medications Current Medications Lactated Ringer's (Lr) 1,000 ml @ 125 mls/hr Q8H IV Last administered on 05:04; Admin Dose 125 MLS/HR; Start 12/23/16 at 04:30 Ondansetron HCl (Zofran Tab) 4 mg Q6H PRN PO NAUSEA AND/OR VOMITING Last administered on 12/27/16 05:42; Admin Dose 4 MG; Start 12/23/16 at 09:00 Ferrous Sulfate (Ferrous Sulfate (Ec)) 325 mg BID PO Last administered on 21:26; Admin Dose 325 MG; Start 12/24/16 at 09:00 Prenat Multivit/ [place]/Iron/Folic Ac ( S) 1 tab DAILY PO Last administered on 12/28/16 08:47; Admin Dose 1 TAB; Start 12/24/16 at 09:00 Morphine Sulfate (morphine) 3 mg Q4H PRN IV PAIN LEVEL 6-10 Last administered on 12/25/16 11:25; Admin Dose 3 MG; Start 12/24/16 at 11:00 Acetaminophen (Tylenol Tab) 650 mg Q6H PRN PO PAIN AND OR ELEVATED TEMP Last administered on 12/25/16 12:47; Admin Dose 650 MG; Start 12/24/16 at 11:00 Acetaminophen/ Hydrocodone Bitart ([place] (5/325)) 1 tab Q4H PRN PO PAIN LEVEL 7 -10 Last administered on 12/25/16 16:36; Admin Dose 1 TAB; Start 12/25/16 at 13: 30 Acetaminophen/ Hydrocodone Bitart ([place] (10/325)) 2 tab Q4H PRN PO PAIN Last administered on 12/29/16 03:43; Admin Dose 2 TAB; Start 12/25/16 at 17:30 Meperidine HCl 50 mg 50 mg Q4H PRN IM PAIN Last administered on 12/27/16 05:34 ; Admin Dose 50 MG; Start 12/26/16 at 00:30 Ceftazidime (Fortaz 1gm/50 ml (Pmx)) 50 ml @ 100 mls/hr Q8 IVPB Last administered on 12/29/16 05:39; Admin Dose 100 MLS/HR; Start 12/26/16 at 22:00 Docusate Sodium (Colace) 100 mg BID PO Last administered on 12/28/16 21:26; Admin Dose 100 MG; Start 12/26/16 at 21:00 Senna (Senokot) 2 tab BID PRN PO CONSTIPATION Last administered on 12/26/16 20: 12; Admin Dose 2 TAB; Start 12/26/16 at 19:30 Bisacodyl (Dulcolax Supp) 10 mg DAILY PRN [place] CONSTIPATION Last administered on 12/27/16 10:21; Admin Dose 10 MG; Start 12/27/16 at 10:00 Polyethylene Glycol (Miralax) 17 gm BID PO Last administered on 12/28/16 08:47 ; Admin Dose 17 GM; Start 12/27/16 at 21:00 ROBIN AVILEZ Dec 29, 2016 08:43
[2016-12-29] MEDS: POLYETHYLENE GLYCOL 17 GM PACKET PO SCH (09:00)
[2016-12-29] MEDS: DOCUSATE SODIUM 100 MG CAP PO SCH (09:13)
[2016-12-29] MEDS: MULTIVIT/MIN/FOLATE/IRON/PREN TAB PO SCH (09:13)
[2016-12-29] MEDS: FERROUS SULFATE (EC) 325 MG TAB PO SCH (09:13)
--- NOTE | 2016-12-29 14:10 | DS ---
Date/Time of Note Date/Time of Note DATE: 12/29/16 TIME: 13:51 Obstetrical Discharge Record Final Diagnosis Final Diagnosis: not delivered Other Final Diagnosis This patient is a 21 years old 1, para 0 with EDC of 03/04/2017, which makes her about 30 weeks and 4 days. She was admitted in the hospital on December 23, 2016 she had several complaints including constipation, back pain, lower abdominal pain . The question of the cholelithiasis or cholecystitis or pyelonephritis was raised. Consultation was sent for general surgery and internal Medicine. After workup the conclusion was that she has pyelonephritis and based on culture and sensitivity of urine she was placed on FORTAZ , a fourth generation cephalosporin After 3 days today she is afebrile and on examination she does not have any CVA tenderness No nausea or vomiting she already had bowel movement, During this hospitalization she repeatedly was requesting [place] which caused the constipation. In consultation with pharmacy. We will put her on Levaquin 500 mg daily for 5 days and discharged home to be followed in the Dr. Agostos office. Laboratory Tests Test 12/28/16 14:33 Basophils # 0.010^3/ul Basophils % 0.2% Blood Morphology Comment Eosinophils # 0.210^3/ul Eosinophils % 1.7% Hematocrit 28.7% Hemoglobin 9.7g/dl Lymphocytes # 1.310^3/ul Lymphocytes % 10.8% Mean Corpuscular Hemoglobin 30.1pg Mean Corpuscular Hemoglobin Concent 33.6g/dl Mean Corpuscular Volume 89.6fl Mean Platelet Volume 7.3fl Monocytes # 1.010^3/ul Monocytes % 8.8% Neutrophils # 9.410^3/ul Neutrophils % 78.5% Nucleated Red Blood Cells # 0.010^3/ul Nucleated Red Blood Cells % 0.0/100WBC Platelet Count 64687^3/UL Red Blood Count 3.2110^6/ul Red Cell Distribution Width 14.8% White Blood Count 11.910^3/ul Current Medications Medications (Trade) Dose Ordered Sig/Vicki Route PRN Reason Start Time Stop Time Status Last Admin Dose Admin Ketorolac Tromethamine 30 mg 30 mg ONCE STAT IM 12/23/16 03:31 12/23/16 04:27 DC Cefazolin Sodium/ Dextrose 50 ml @ 100 mls/hr ONCE ONCE IVPB 12/23/16 04:00 12/23/16 04:29 DC 12/23/16 04:35 Acetaminophen 100 ml @ 400 mls/hr ONCE ONCE IVPB 12/23/16 04:00 12/23/16 04:14 DC 12/23/16 04:00 Lactated Ringer's 1,000 ml @ 125 mls/hr Q8H IV 12/23/16 04:30 12/29/16 13:11 Lactated Ringer's 1,000 ml @ 125 mls/hr Q8H IV 12/23/16 06:09 12/23/16 12:56 DC 12/23/16 03:45 Cefazolin Sodium/ Dextrose (Ancef 2 Gm/50 ml (Pmx)) 50 ml @ 100 mls/hr Q8 IV 12/23/16 12:00 12/24/16 10:43 DC 12/24/16 06:00 Acetaminophen/ Hydrocodone Bitart ([place] (5/325)) 1 tab Q4H PRN PO pain 12/23/16 06:30 12/24/16 10:43 DC 12/24/16 09:02 Ondansetron HCl (Zofran Tab) 4 mg Q6H PRN PO NAUSEA AND/OR VOMITING 12/23/16 09:00 12/29/16 13:13 DC 12/27/16 05:42 Prenat Multivit/ Outside Solar Sales Consultant/Iron/Folic Ac ( S) 1 tab DAILY PO 12/23/16 09:00 12/24/16 07:12 DC 12/23/16 09:00 Ferrous Sulfate (Ferrous Sulfate (Ec)) 325 mg BID PO 12/24/16 09:00 12/29/16 09:13 Prenat Multivit/ Outside Solar Sales Consultant/Iron/Folic Ac ( S) 1 tab DAILY PO 12/24/16 09:00 12/29/16 09:13 Ceftriaxone Sodium (Rocephin) 4 gm ONCE IVPB 12/24/16 11:00 12/30/16 10:59 UNV Morphine Sulfate (morphine) 3 mg Q4H PRN IV PAIN LEVEL 6-10 12/24/16 11:00 12/29/16 13:13 DC 12/25/16 11:25 Acetaminophen 650 mg 650 mg Q6H PRN PO PAIN AND OR ELEVATED TEMP 12/24/16 11:00 12/25/16 12:47 Ceftriaxone Sodium 50 ml @ 100 mls/hr Q24H IVPB 12/24/16 12:00 12/26/16 15:19 DC 12/26/16 11:27 Sodium Chloride (NS) 1,000 ml @ 125 mls/hr Q8H IV 12/24/16 20:30 12/26/16 22:39 DC 12/26/16 14:53 Acetaminophen/ Hydrocodone Bitart ([place] (5/325)) 1 tab Q4H PRN PO PAIN LEVEL 7-10 12/25/16 13:30 12/29/16 13:13 DC 12/25/16 16:36 Acetaminophen/ Hydrocodone Bitart ([place] (10/325)) 2 tab Q4H PRN PO PAIN 12/25/16 17:30 12/29/16 13:13 DC 12/29/16 03:43 Meperidine HCl (Demerol) 50 mg ONCE ONCE IM 12/25/16 22:00 12/25/16 22:01 DC 12/25/16 22:09 Meperidine HCl 50 mg 50 mg Q4H PRN IM PAIN 12/26/16 00:30 12/29/16 13:13 DC 12/27/16 05:34 Ceftazidime (Fortaz 1gm/50 ml (Pmx)) 50 ml @ 100 mls/hr Q8 IVPB 12/26/16 22:00 12/29/16 13:27 Docusate Sodium (Colace) 100 mg BID PO 12/26/16 21:00 12/29/16 09:13 Senna (Senokot) 2 tab BID PRN PO CONSTIPATION 12/26/16 19:30 12/26/16 20:12 Bisacodyl (Dulcolax Supp) 10 mg DAILY PRN [place] CONSTIPATION 12/27/16 10:00 12/27/16 10:21 Polyethylene Glycol (Miralax) 17 gm BID GTB 12/27/16 10:00 12/27/16 10:03 DC Polyethylene Glycol (Miralax) 17 gm BID PO 12/27/16 21:00 12/28/16 08:47 As analgesic she was recommended to take Tylenol 500 mg every 6 hour if necessary and no narcotic medication Section Primary Indication , Pyelonephritis Complications Other Augmentation: No Induction: No Rupture of Membranes: No Condition on Discharge Physical Assessment Voiding: Yes Bowel Movement: Yes Calf Tenderness: No Patient Condition: Good LUKE HANSON MD Dec 29, 2016 14:10
[2016-12-29] MEDS ORDERED: LEVO500T10 PO (14:23)
[2016-12-29] MEDS ORDERED: LEVO500T72 PO (14:23)
--- NOTE | 2016-12-29 16:17 | PN ---
Date/Time of Note Date/Time of Note DATE: 12/29/16 TIME: 16:16 Assessment/Plan Lines/Catheters IV Catheter Type (from Nrsg): Peripheral IV Assessment/Plan Chief Complaint/Hosp Course 1. Abdominal pain with constipation 2nd mild paralytic ileus 2nd UTI/Pyelo. Improving. -abx -judicious fluid management -ambulate -chew gum -monitor -diet as tolerated 2. 30 weeks with IUP -OB f/u and care 3. Leukocytosis 2nd UTI and above. Improving -abx 4. BMI 34 with -nutritional optimization -exercise as tolerated 5. Hypoalbuminemia -nutritional optimization 6. Anemia -monitor 7. Hypokalemia -replete Thank you Late entry Problems: Subjective 24 Hr Interval Summary Bowel function. No f/c. Pain improving. No cp/sob. No cough. No granda/dizzy/ visual or neuro changes. No dysuria. Exam/Review of Systems Vital Signs Vitals Intake and Output 12/28/16 12/28/16 12/29/16 15:00 23:00 07:00 Intake Total 1170 ml 1530 ml 1290 ml Output Total 400 ml 1400 ml 400 ml Balance 770 ml 130 ml 890 ml Exam Free Text/Dictation Constitutional: alert, oriented, other (BMI 34 with 30wk IUP), No distress Psych: nl mood/affect, No anxiety Head: atraumatic, normocephalic Eyes: EOMI, PERRL, nl conjunctiva, No icteric ENMT: mucosa pink and moist, nl external ears & nose Neck: non-tender, supple, No jvd Respiratory: normal air movement, No congested cough, No labored breathing Cardiovascular: nl pulses, regular rate and rhythm, No edema Gastrointestinal: distended, soft, tender (min), No rebound or guarding Musculoskeletal: nl extremities to inspection, nl gait and stance, No joint tenderness Extremities: normal pulses, No calf tenderness, No cyanosis Neurological: nl mental status, nl speech, nl strength Skin: nl turgor, No diaphoresis, No rash or lesions Lymph: nl lymph nodes Results Result Diagram: 12/28/16 1433 12/27/16 1215 BRIAN TIDWELL MD Dec 29, 2016 16:17
== END 2016-12-29 14:53 | disposition home or self-care (01) | DRG 781 ==
LOC: OBT 01:35 → L-D 01:35 → OBT 06:00 → OBG 06:00
PROVIDERS: ADMIT Obstetrics & Gynecology; ATTEND Obstetrics & Gynecology
DX: O23.03 Infections of kidney in pregnancy, third trimester (principal); K56.0 Paralytic ileus; O26.893 Other specified pregnancy related conditions, third trimester; Z3A.29 29 weeks gestation of pregnancy; K59.00 Constipation, unspecified; E88.09 Other disorders of plasma-protein metabolism, not elsewhere classified; E87.6 Hypokalemia; B96.5 Pseudomonas (aeruginosa) (mallei) (pseudomallei) as the cause of diseases classified elsewhere; O99.013 Anemia complicating pregnancy, third trimester; O21.9 Vomiting of pregnancy, unspecified
CPT/HCPCS: 36415; 74181; 74183; 76775; 80053; 80307; 81001; 81003; 82150; 82270; 82565; 83690; 84520; 85025; 86704; 86709; 86803; 87086; 87340; 96360; 96361; 96366; 96367; G0463; J0131; J0690; J0696; J2175; J2270; J7030; J7120

== ENCOUNTER 2017-01-03 02:12 | Inpatient (IN) | payer MEDICAID ==
[~2017-01-03] VITALS: Ht 154.9 cm; Wt 77.4 kg
[~2017-01-03 02:12] MED LIST changes: -ASPI-664 PO; +LEVO500T10 PO; +LEVO500T72 PO
[2017-01-03 02:25] VITALS: BP 111/57; PULSE 85; RESP 18; Ht 154.9 cm; Wt 77.4 kg
[2017-01-03] MEDS ORDERED: GENTAMICIN 120 MG/NS (PMX) 100 ML IVPB ONE (04:00)
[2017-01-03] MEDS ORDERED: KETOROLAC 30 MG INJ IV PRN (04:30)
[2017-01-03] MEDS: LACTATED RINGER'S 1,000 ML IV SCH ×4 (04:33→19:01)
[2017-01-03 05:44] LABS: ADD SCAN DIFF NO; BASOPHIL # 0.1 10^3/ul (0.0-0.1); BASOPHILS % 0.6 % (0.0-2.0); EOSINOPHILS # 0.3 10^3/ul (0.0-0.5); EOSINOPHILS % 3.5 % (0.0-7.0); HEMATOCRIT 30.6 % (37.0-47.0); HEMOGLOBIN 10.1 g/dl (12.0-16.0); LYMPHOCYTES # 1.5 10^3/ul (0.8-2.9); LYMPHOCYTES % 18.7 % (18.0-55.0); MEAN CORPUSCULAR HEMOGLOBIN 28.9 pg (29.0-33.0); MEAN CORPUSCULAR VOLUME 87.4 fl (72.0-104.0); MEAN PLATELET VOLUME 9.4 fl (7.4-10.4); MONOCYTE # 0.7 10^3/ul (0.3-0.9); MONOCYTES % 8.1 % (0.0-13.0); NEUTROPHIL # 5.5 10^3/ul (1.6-7.5); PLATELET COUNT 415 10^3/UL (140-415); RED CELL DISTRIBUTION WIDTH 14.3 % (11.5-14.5); WHITE BLOOD COUNT 8.2 10^3/ul (4.8-10.8)
[2017-01-03 06:04] LABS: POTASSIUM 3.1 mmol/L (3.5-5.1)
[2017-01-03 06:06] LABS: CREATININE 0.64 mg/dl (0.44-1.00)
[2017-01-03] MEDS: MULTIVIT/MIN/FOLATE/IRON/PREN TAB PO SCH (09:13)
[2017-01-03 09:49] LABS: ADD UMIC YES; URINE BILIRUBIN (Dip) NEGATIVE (NEGATIVE); URINE BLOOD (Dip) TRACE (NEGATIVE); URINE COLOR LT. YELLOW (YELLOW); URINE GLUCOSE (Dip) NEGATIVE (NEGATIVE); URINE KETONES (Dip) 15 (NEGATIVE); URINE LEUKOCYTE ESTERASE (Dip) TRACE (NEGATIVE); URINE NITRITE (Dip) NEGATIVE (NEGATIVE); URINE TOTAL PROTEIN (Dip) NEGATIVE (NEGATIVE); URINE UROBILINOGEN (Dip) 0.2 E.U./dL (0.1-1.0)
[2017-01-03 10:02] LABS: BACTERIA,URINE OCCASIONAL
[2017-01-03 10:15] LABS: OPIATES Negative (NEGATIVE)
[2017-01-03 10:22] LABS: BARBITURATES Negative (NEGATIVE); BENZODIAZEPINES Negative (NEGATIVE); CANNABINOIDS Negative (NEGATIVE); COCAINE Negative (NEGATIVE)
[2017-01-03] MEDS: GENTAMICIN 80 MG/NS (PMX) 50 ML IVPB SCH ×2 (12:01→20:12)
--- NOTE | 2017-01-03 12:32 | QN ---
Documentation Comment 31+wks GA with Pyelonephritis On Antibiotics feels improved Not febrile stable No LOF +FM No VBNo CTX NST reassuring for GA [place] No CTXs Pelvic Deferred ---F/u Urine culture ---Possible discharge tomorrow OLGA BELLO M.D. Jan 03, 2017 12:32
[2017-01-04] MEDS: LACTATED RINGER'S 1,000 ML IV SCH ×3 (03:40→23:25)
[2017-01-04] MEDS: GENTAMICIN 80 MG/NS (PMX) 50 ML IVPB SCH ×3 (04:04→20:07)
[2017-01-04] MEDS: MULTIVIT/MIN/FOLATE/IRON/PREN TAB PO SCH (09:03)
[2017-01-04] MEDS ORDERED: LACTATED RINGER'S 1,000 ML IV ONE (14:30)
--- NOTE | 2017-01-04 15:45 | QN ---
Documentation Comment Day 2 of this 21 y.o. G1 with pyelonephritis. Pt was initially in [facility] 12/23-12/29 with the same dx initially on Ancef, then a dose of Ceftriaxone, and then sent home on Levaquin. Pt came back in the early AM of 01/03 with severe recurrent left CVAT although was afebrile. Her WBC was 8.2 on admit but was readmitted for further IV therapy with different medications and reevaluation of the medications she would go home on once better.She was initiated on Gentamicin. Pt is afebrile today. 1+ left CVAT, so improved but not completely better. I spoke to Shruthi Alfredo the infectious disease TECHNICIAN [employer] today re: the antibiotic issues, development of antibiotic resistance issues with Pseudomonas, issues of limited choices of oral antibiotic regimens for when she goes home. She recommended adding Aztreonam 1 gram q 8 hours to the Gentamicin and will help with the oral regimen of choice for when she goes home, which will hopefully be tomorrow. Pt is becoming very anxious about being here and I spoke to her at length about the importance for both her and the baby to get rid of this infection. JAMARCUS TIMMONS MD Jan 04, 2017 15:44
--- NOTE | 2017-01-04 15:59 | CONS ---
Date/Time of Note Date/Time of Note DATE: 01/04/17 TIME: 15:36 Assessment/Plan Assessment/Plan Chief Complaint/Hosp Course ID ANTIBIOTIC SHORT NOTE CONSULTATION * * Please note patient was not seen - this is an E-Consultation online record review. HPI 21 yo F 31 weeks gestation with resolving acute complicated UTI/Pyelonephritis diagnosed recent admission and was treated w/FORTAZ from 12/26/16 - 12/29/16, was sent out on PO ABX and now returns with continued CVA tenderness. Apparently she also developed an ileus last admission. Renal UTX 12/23/16 w/mild left sided hydronephrosis. Repeat UA shows clearing of the UTI w/repeat MICRO negative for UTI. WBC count has normalized, there are no recorded fevers. 01/03/17 0440 01/03/17 0440 RECENT DIAGNOSTICS/MICROBIOLOGY RESULTS MRI 12/28/16: IMPRESSION: 1. Interval resolution of the ileus pattern compared to the prior MRI of 2016. There is no evidence currently of ileus or obstruction. 2. Stable mild bilateral hydroureteronephrosis related to the gravid state. 3. Trace amount of perihepatic ascites. Stephanie: 12/24/16-749 Rcvd: 12/24/16-810 Source: [facility]BERT Sp Descrip: Procedure Result Microbiology URINE CULTURE Final Organism 1 PSEUDOMONAS SPECIES COLONY COUNT 50,000 - 60,000 CFU/ml PSEUDOCici SP M.I.C. RX --------- --- AMIKACIN <=2 S AZTREONAM S CEFTAZIDIME <=1 S CIPROFLOXACIN <=0.25 S GENTAMICIN <=1 S IMIPENEM <=0.25 S LEVOFLOXACIN <=0.12 S TOBRAMYCIN <=1 S PIPERACILLIN/TAZOBACTAM <=4 S Specimen: [id number] Status: Resulted Stephanie: 01/03/17 Rcvd: 01/03 Source: [facility] Sp Descrip: Procedure Result Microbiology URINE CULTURE Preliminary NO GROWTH AFTER 24 HOURS ID ASSESSMENT/PLAN 21 yo F 31 weeks gestation re-admitted with: 1. CVA flank pain 2. Resolving acute complicated (+)PSAR UTI/Pyelonephritis diagnosed 12/24/16 during recent admission. * Total effective ABX Day # 10: Treated w/FORTAZ from 12/26/16 - 12/29/16,->PO ABX "switch" 12/30/16 01/02/17, no on GENT IV 3. Systemic inflammatory response w/leukocytosis = RESOLVED ID RECOMMENDATIONS 1. Concur w/Dr. Mcgill, since patient returns w/CVA tenderness, recommend start IV ABX "Double Cover" for (+)Complicated PSAR pyelonephritis. * PSAR is known to develop resistance to single agent anti-microbials; however in this case, patient demonstrates clinical improvement per absence of fevers, resolution of leukocytosis, and resolving infection markers on repeat UA w/ Micro (-)24 hours pending final. 2. Started on GENT IV + Add Azactam 1gm IVPB Q8H 3. Would anticipate DC patient home OFF ABX in a couple days as long as no fevers, CVA tenderness resolved, and final urine culture remains (-). * Alternative, if clinical indicators present concerning for persistent infection, such as CVA tenderness, fevers, (+)Urine culture, would DC with HH IV ABX Primaxin 1GM IVPB Q8 Hours to complete another 5 day course. * Unfortunately, I check with pharmacy and literature, the known 3rd Generation PO Cephalosporin ABX do not cover PSAR, all are resistant. Fluoroquinolone ABX is not recommended in this case. * Thank you, report will be given to Dr. Bonilla and will follow the patient with you tomorrow. Problems: Consultation Date/Type/Reason Admit Date/Time Jan 03, 2017 at 03:59 Initial Consult Date Exam/Review of Systems Vital Signs Vitals Vital Signs Date Time Temp Pulse Resp B/P Pulse Ox O2 Delivery O2 Flow Rate FiO2 01/03/17 02:25 98.2 85 18 111/57 Room Air Intake and Output 01/03/17 01/03/17 01/04/17 15:00 23:00 07:00 Intake Total 50 ml 2200 ml 1050 ml Output Total 500 ml 800 ml 900 ml Balance -450 ml 1400 ml 150 ml Results Result Diagram: 01/03/1743901/03/17439 Medications Medications Current Medications Lactated Ringer's (Lr) 1,000 ml @ 125 mls/hr Q8H IV Last administered on 13:57; Admin Dose 125 MLS/HR; Start 01/03/17 at 03:52 Prenat Multivit/ [place]/Iron/Folic Ac 1 tab 1 tab DAILY PO Last administered on 01/04/17 09:03; Admin Dose 1 TAB; Start 01/03/17 at 09:00 Gentamicin Sulfate (Gentamicin) 50 ml @ 104 mls/hr Q8H IVPB Last administered on 01/04/17 11:32; Admin Dose 104 MLS/HR; Start 01/03/17 at 12:00 Ketorolac Tromethamine 30 mg 30 mg Q6H PRN IV PAIN Last administered on 05:25; Admin Dose 30 MG; Start 01/03/17 at 04:30; Stop 01/06/17 at 04:29 Lactated Ringer's 1,000 ml @ 1,000 mls/hr Q1H ONCE IV ; Start 01/04/17 at 14:30 ; Stop 01/04/17 at 15:29 Aztreonam (Azactam 1gm/NS (Pmx)) 50 ml @ 100 mls/hr Q8 IVPB ; Start 01/04/17 at 16:00; Status FRANKO ZHAO NP Jan 04, 2017 15:49
[2017-01-04] MEDS: AZTREONAM 1 GM/NS (PMX) 50 ML IVPB SCH ×2 (17:18→23:25)
[2017-01-05] MEDS: GENTAMICIN 80 MG/NS (PMX) 50 ML IVPB SCH ×3 (04:18→20:39)
[2017-01-05] MEDS: AZTREONAM 1 GM/NS (PMX) 50 ML IVPB SCH ×3 (06:02→21:52)
[2017-01-05] MEDS: LACTATED RINGER'S 1,000 ML IV SCH ×2 (06:03→17:09)
[2017-01-05] MEDS: MULTIVIT/MIN/FOLATE/IRON/PREN TAB PO SCH (08:54)
--- NOTE | 2017-01-05 14:18 | QN ---
Documentation Comment 31+wks GA with Pyelonephritis On Antibiotics feels improved Not febrile stable No LOF +FM No VBNo CTX NST reassuring for GA [place] No CTXs Pelvic Deferred ---The last Urine culture--->Neg As previous culture was pseudomonas,I prefer to keep the patient until she completes her IV antibiotics regimen However Infectious disease were contacted through the Nursing net making supervisor to see if they have a different suggestion OLGA BELLO M.D. Jan 05, 2017 14:17
--- NOTE | 2017-01-05 14:26 | QN ---
Documentation Comment from [place] were contacted ,He recommends to keep the patient in the hospital for another few days and for IV antibiotics therapy OLGA BELLO M.D. Jan 05, 2017 14:26
--- NOTE | 2017-01-05 14:57 | CONS ---
DATE OF ADMISSION: 01/03/2017 DATE OF CONSULTATION: 01/04/2017 TYPE OF CONSULTATION: Infectious disease. REASON FOR CONSULTATION: Antibiotic management. HISTORY OF PRESENT ILLNESS: Breanna Retana is a 21-year-old female at 31 weeks' gestati on with resolving uncomplicated UTI and pyelonephritis diagnosed on a recent admission. She was cindy ated with Fortaz from to 12/26/2016 to 12/29/2016 and was sent out on oral antibiotics. She now ret urns with CVA tenderness. Apparently, she also developed an ileus on her last admission. Renal ult rasound on 12/23/2016 showed mild left-sided hydronephrosis. Recent UA shows clearing UTI with repe at micro negative for UTI. On admission, her white count was 8.2, H and H 10.1 and 30.6, platelet c ount of 415,000. BUN and creatinine 8/0.64. An MRI showed interval resolution of the ileus pattern on a previous MRI to 12/26/2016. Stable mild bilateral hydronephrosis related to the gravid state and trace amount of perihepatic asc ites. Prior organisms were sensitive to amikacin, aztreonam, Cipro, ceftazidime, imipenem. PAST MEDICAL HISTORY: Operations as outlined. FAMILY HISTORY: Noncontributory. SOCIAL HISTORY: She does not smoke, drink or abuse drugs. ALLERGIES: NONE TO PENICILLIN, SULFA OR FOODS. MEDICATIONS: Per chart. REVIEW OF SYSTEMS: As per HPI. PHYSICAL EXAMINATION: GENERAL: The patient is a 21-year-old female who is 31 weeks into her , readmitted with CV A flank pain. SKIN: Without generalized rash. HEENT: Within normal limits. NECK: Supple. LYMPH NODES: None palpable. CHEST: Decreased breath sounds at the bases. HEART: Without murmur or gallop. ABDOMEN: Soft, nontender, without organosplenomegaly or masses. EXTREMITIES: Without cyanosis, clubbing, or edema. RECTAL AND GENITAL: Exam is deferred. NEUROLOGIC EVALUATION: No focal neurological abnormalities. She does have CVA tenderness. IMPRESSION AND PLAN: She has a pyelonephritis with pseudomonas and was started on Fortaz and switch ed to an oral antibiotic and now she is on gentamicin. We would add aztreonam to her regimen 1 gram q.8h. Would anticipate sending her home off antibiotics in a few days, if there is no fever and no symptomatology, and the urine is negative. If she is positive for CVA tenderness and so on, I woul d consider Primaxin. We can give it 1 gram q.12h. for an additional 5 to 7 days. The fluoroquinolo dawn are not recommended in this case. I want to thank Dr. Mcgill for asking us to see this melissa lady in consultation. Dictated By: FARZAD MACHADO MD, JD/MARY JANE Conf#: [id number] DID#: [id number]
--- NOTE | 2017-01-05 15:25 | CONS ---
Date/Time of Note Date/Time of Note DATE: 01/05/17 TIME: 15:20 Assessment/Plan Assessment/Plan Chief Complaint/Hosp Course ID PROGRESS NOTE * A/A/O -> reports decreasing left back/CVA tenderness "much better, still there ". Denies F/C/N/V/dysuria * Repeat Urine culture (-) 48H * She is on "double ABX cover" for PSAR w/GENT IV + Azactam HPI 21 yo F 31 weeks gestation with resolving acute complicated UTI/Pyelonephritis diagnosed recent admission and was treated w/FORTAZ from 12/26/16 - 12/29/16, was sent out on PO ABX and now returns with continued CVA tenderness. Apparently she also developed an ileus last admission. Renal UTX 12/23/16 w/mild left sided hydronephrosis. Repeat UA shows clearing of the UTI w/repeat MICRO negative for UTI. WBC count has normalized, there are no recorded fevers. RECENT DIAGNOSTICS/MICROBIOLOGY RESULTS MRI 12/28/16: IMPRESSION: 1. Interval resolution of the ileus pattern compared to the prior MRI of 2016. There is no evidence currently of ileus or obstruction. 2. Stable mild bilateral hydroureteronephrosis related to the gravid state. 3. Trace amount of perihepatic ascites. Stephanie: 12/24/16-0750 Rcvd: 12/24/16-11 Source: [facility] Sp Descrip: Procedure Result Microbiology URINE CULTURE Final Organism 1 PSEUDOMONAS SPECIES COLONY COUNT 50,000 - 60,000 CFU/ml SHANNON SP M.I.C. RX --------- --- AMIKACIN <=2 S AZTREONAM S CEFTAZIDIME <=1 S CIPROFLOXACIN <=0.25 S GENTAMICIN <=1 S IMIPENEM <=0.25 S LEVOFLOXACIN <=0.12 S TOBRAMYCIN <=1 S PIPERACILLIN/TAZOBACTAM <=4 S Specimen: [id number] Status: Resulted Stephanie: 01/03/17 Rcvd: 01/03 Source: [facility] Sp Descrip: Procedure Result Microbiology URINE CULTURE Final NO GROWTH AFTER 48 HOURS EXAM A/A/O, calm, cooperative, good historian HEENT: unremarkable Neck: supple, full ROM Chest: Lungs CTAB Anterior CV: Pulse RRR ABD: F deferred BACK: (+) Mild CVA tenderness with palpation EXT: unremarkable, moves all extremities ID ASSESSMENT/PLAN 21 yo F 31 weeks gestation re-admitted with: 1. CVA flank pain 2. Resolving acute complicated (+)PSAR UTI/Pyelonephritis diagnosed 12/24/16 during recent admission. * Total effective ABX Day # 10: Treated w/FORTAZ from 12/26/16 - 12/29/16,->PO ABX "switch" 12/30/16 01/02/17, no on GENT IV 3. Systemic inflammatory response w/leukocytosis = RESOLVED ID RECOMMENDATIONS 1. Concur w/Dr. Mcgill, since patient returns w/CVA tenderness, recommend start IV ABX "Double Cover" for (+)Complicated PSAR pyelonephritis. * PSAR is known to develop resistance to single agent anti-microbials; however in this case, patient demonstrates clinical improvement per absence of fevers, resolution of leukocytosis, and resolving infection markers on repeat UA w/ Micro (-)24 hours pending final. 2. Started on GENT IV + Add Azactam 1gm IVPB Q8H 3. Would anticipate DC patient home OFF ABX in a couple days as long as no fevers, CVA tenderness resolved, and final urine culture remains (-). * Alternative, if clinical indicators present concerning for persistent infection, such as CVA tenderness, fevers, (+)Urine culture, would DC with HH IV ABX Primaxin 1GM IVPB Q8 Hours to complete another 5 day course. * Unfortunately, I check with pharmacy and literature, the known 3rd Generation PO Cephalosporin ABX do not cover PSAR, all are resistant. Fluoroquinolone ABX is not recommended in this case. Problems: Consultation Date/Type/Reason Admit Date/Time Jan 03, 2017 at 03:59 Exam/Review of Systems Vital Signs Vitals Vital Signs Date Time Temp Pulse Resp B/P Pulse Ox O2 Delivery O2 Flow Rate FiO2 01/03/17 02:25 98.2 85 18 111/57 Room Air Intake and Output 01/04/17 01/04/17 01/05/17 15:00 23:00 07:00 Intake Total 1350 ml 1600 ml 2475 ml Output Total 1200 ml 300 ml 800 ml Balance 150 ml 1300 ml 1675 ml Results Result Diagram: 01/03/17 0440 01/03/17 0440 Medications Medications Current Medications Lactated Ringer's (Lr) 1,000 ml @ 125 mls/hr Q8H IV Last administered on 06:03; Admin Dose 125 MLS/HR; Start 01/03/17 at 03:52 Prenat Multivit/ Senior Administrative Associate/Iron/Folic Ac 1 tab 1 tab DAILY PO Last administered on 01/05/17 08:54; Admin Dose 1 TAB; Start 01/03/17 at 09:00 Gentamicin Sulfate (Gentamicin) 50 ml @ 104 mls/hr Q8H IVPB Last administered on 01/05/17 12:03; Admin Dose 104 MLS/HR; Start 01/03/17 at 12:00 Ketorolac Tromethamine 30 mg 30 mg Q6H PRN IV PAIN Last administered on 05:25; Admin Dose 30 MG; Start 01/03/17 at 04:30; Stop 01/06/17 at 04:29 Aztreonam (Azactam 1gm/NS (Pmx)) 50 ml @ 100 mls/hr Q8 IVPB Last administered on 01/05/17 14:31; Admin Dose 100 MLS/HR; Start 01/04/17 at 16:30 FRANKO VALENTIN CLEAN RICE GRADER AND REEL TENDER Jan 05, 2017 15:25
[2017-01-06] MEDS: LACTATED RINGER'S 1,000 ML IV SCH ×4 (03:24→22:45)
[2017-01-06] MEDS: GENTAMICIN 80 MG/NS (PMX) 50 ML IVPB SCH ×3 (04:01→20:17)
[2017-01-06] MEDS: AZTREONAM 1 GM/NS (PMX) 50 ML IVPB SCH ×3 (05:50→22:25)
--- NOTE | 2017-01-06 08:25 | QN ---
Documentation Comment patient seen and evaluated complains of mild back pain however improved significantly since admission. no contraction vs stable afebrile ab mild left cva tenderness extremity no edema no calf tenderness a/ iup at 31 wks ga with resolving symptoms of pyelonephritis currently on iv antibiotics p/ f/u with ID consult EVELIN DE LEON MD Jan 06, 2017 08:25
[2017-01-06] MEDS: MULTIVIT/MIN/FOLATE/IRON/PREN TAB PO SCH (09:09)
--- NOTE | 2017-01-06 22:21 | CONS ---
Date/Time of Note Date/Time of Note DATE: 01/06/17 TIME: 22:16 Assessment/Plan Assessment/Plan Chief Complaint/Hosp Course Subjective: No acte events, alert, feels better, still with L flank discomfort, no dysuria/hematuria/n/v, no fevers Abx: Gentamicin Azactam PHYSICAL EXAMINATION: GENERAL: The patient is a 21-year-old female who is 31 weeks into her , readmitted with CVA flank pain. SKIN: Without generalized rash. HEENT: Within normal limits. NECK: Supple. LYMPH NODES: None palpable. CHEST: Decreased breath sounds at the bases. HEART: Without murmur or gallop. ABDOMEN: Soft, nontender, +BT EXTREMITIES: Without cyanosis, clubbing, or edema. RECTAL AND GENITAL: Exam is deferred. NEUROLOGIC EVALUATION: No focal neurological abnormalities. Assessment: 1. Acute pyelonephritis==> cx + PSA 2. SIRS 3. Plan: Overall improving, will keep on current abx, await for resolution of her symptoms DW pt/RN Problems: Consultation Date/Type/Reason Admit Date/Time Jan 03, 2017 at 03:59 Initial Consult Date Type of Consultation: id Exam/Review of Systems Vital Signs Vitals Vital Signs Date Time Temp Pulse Resp B/P Pulse Ox O2 Delivery O2 Flow Rate FiO2 01/03/17 02:25 98.2 85 18 111/57 Room Air Intake and Output 01/05/17 01/05/17 01/06/17 15:00 23:00 07:00 Intake Total 750 ml 2500 ml 900 ml Output Total 1350 ml 1600 ml Balance -600 ml 900 ml 900 ml Results Result Diagram: 01/03/17 0440 01/03/17 0440 Medications Medications Current Medications Lactated Ringer's (Lr) 1,000 ml @ 125 mls/hr Q8H IV Last administered on 11:55; Admin Dose 125 MLS/HR; Start 01/03/17 at 03:52 Prenat Multivit/ [place]/Iron/Folic Ac 1 tab 1 tab DAILY PO Last administered on 01/06/17 09:09; Admin Dose 1 TAB; Start 01/03/17 at 09:00 Gentamicin Sulfate 50 ml @ 104 mls/hr Q8H IVPB Last administered on 01/06/17 20:17; Admin Dose 104 MLS/HR; Start 01/03/17 at 12:00 Aztreonam (Azactam 1gm/NS (Pmx)) 50 ml @ 100 mls/hr Q8 IVPB Last administered on 01/06/17t 14:08; Admin Dose 100 MLS/HR; Start 01/04/17 at 16:30 MARY PINTO NP Jan 06, 2017 22:21
[2017-01-07] MEDS: GENTAMICIN 80 MG/NS (PMX) 50 ML IVPB SCH ×3 (04:12→20:43)
[2017-01-07] MEDS: AZTREONAM 1 GM/NS (PMX) 50 ML IVPB SCH ×3 (06:28→22:03)
[2017-01-07] MEDS: LACTATED RINGER'S 1,000 ML IV SCH ×3 (06:35→20:44)
[2017-01-07] MEDS: MULTIVIT/MIN/FOLATE/IRON/PREN TAB PO SCH (08:51)
[2017-01-07 16:29] LABS: CREATININE 0.56 mg/dl (0.44-1.00)
--- NOTE | 2017-01-07 18:25 | QN ---
Documentation Comment patient seen and evaluated no complaints no contraction vs stable afebrile ab minimal left cva tenderness extremity no edema no calf tenderness a/ iup at 31 wks ga with resolving symptoms of pyelonephritis currently on iv antibiotics p/ discuss with ID for possible discharge tomorrow EVELIN DE LEON MD Jan 07, 2017 18:25
[2017-01-08] MEDS ORDERED: [UNRECOGNIZED DRUG - REMARK] XX ONE (03:00)
[2017-01-08] MEDS: GENTAMICIN 80 MG/NS (PMX) 50 ML IVPB SCH (04:01)
[2017-01-08] MEDS ORDERED: [UNRECOGNIZED DRUG - REMARK] XX ONE (05:00)
[2017-01-08] MEDS: AZTREONAM 1 GM/NS (PMX) 50 ML IVPB SCH ×3 (06:21→22:02)
[2017-01-08] MEDS: LACTATED RINGER'S 1,000 ML IV SCH ×2 (06:22→17:06)
[2017-01-08] MEDS: MULTIVIT/MIN/FOLATE/IRON/PREN TAB PO SCH (09:47)
--- NOTE | 2017-01-08 12:09 | QN ---
Documentation Comment patient seen and evaluated no complaints no contraction vs stable afebrile ab no cva tenderness, gravid extremity no edema no calf tenderness a/ iup at 31 wks ga with resolved symptoms of pyelonephritis currently on iv antibiotics p/ discuss with ID for possible EVELIN DE LEON MD Jan 08, 2017 12:09
--- NOTE | 2017-01-08 12:59 | CONS ---
Date/Time of Note Date/Time of Note DATE: 01/08/17 TIME: 12:57 Assessment/Plan Assessment/Plan Chief Complaint/Hosp Course Subjective: No acte events, alert, feels better, still with L flank discomfort, no dysuria/hematuria/n/v, no fevers Abx: Gentamicin Azactam PHYSICAL EXAMINATION: GENERAL: The patient is a 21-year-old female who is 31 weeks into her , readmitted with CVA flank pain. SKIN: Without generalized rash. HEENT: Within normal limits. NECK: Supple. LYMPH NODES: None palpable. CHEST: Decreased breath sounds at the bases. HEART: Without murmur or gallop. ABDOMEN: Soft, nontender, +BT EXTREMITIES: Without cyanosis, clubbing, or edema. RECTAL AND GENITAL: Exam is deferred. NEUROLOGIC EVALUATION: No focal neurological abnormalities. Assessment: 1. Acute pyelonephritis==> cx + PSA 2. SIRS 3. Plan: Doing better, no L CVA tenderness today, dc Gentamicin, continue Azactam. Recommend PICC to complete 7 more days IV abx DW pt/RN Asif Bonilla Problems: Consultation Date/Type/Reason Admit Date/Time Jan 03, 2017 at 03:59 Type of Consultation: id Exam/Review of Systems Vital Signs Vitals Intake and Output 01/07/17 01/07/17 01/08/17 15:00 23:00 07:00 Intake Total 1100 ml 1155 ml 1000 ml Output Total 600 ml 600 ml 300 ml Balance 500 ml 555 ml 700 ml Results Result Diagram: 01/07/17 1545 Results 24 hrs Laboratory Tests Test 01/07/17 15:45 01/08/17 03:13 01/08/17 04:56 Blood Urea Nitrogen 7 Creatinine 0.56 Gentamicin Level Trough 0.7 L Gentamicin Level Peak 3.5 L Medications Medications Current Medications Lactated Ringer's (Lr) 1,000 ml @ 125 mls/hr Q8H IV Last administered on 06:22; Admin Dose 125 MLS/HR; Start 01/03/17 at 03:52 Prenat Multivit/ Cytometry Technologist/Iron/Folic Ac 1 tab 1 tab DAILY PO Last administered on 01/08/17 09:47; Admin Dose 1 TAB; Start 01/03/17 at 09:00 Aztreonam (Azactam 1gm/NS (Pmx)) 50 ml @ 100 mls/hr Q8 IVPB Last administered on 01/08/17t 06:21; Admin Dose 100 MLS/HR; Start 01/04/17 at 16:30 MARY PINTO NP Jan 08, 2017 12:59
[2017-01-09] MEDS: LACTATED RINGER'S 1,000 ML IV SCH ×3 (00:33→19:52)
[2017-01-09] MEDS: AZTREONAM 1 GM/NS (PMX) 50 ML IVPB SCH ×3 (05:52→22:29)
[2017-01-09] MEDS: MULTIVIT/MIN/FOLATE/IRON/PREN TAB PO SCH (08:57)
--- NOTE | 2017-01-09 20:07 | QN ---
Documentation Comment patient seen and evaluated no complaints no contraction patient decline a PICC line vs stable afebrile ab no cva tenderness, gravid extremity no edema no calf tenderness a/ iup at 31 wks ga with resolved symptoms of pyelonephritis currently on iv antibiotics p/ discuss with ID to discharge home with current IV line instead of PICC line with home care EVELIN DE LEON MD Jan 09, 2017 20:06
--- NOTE | 2017-01-09 22:43 | CONS ---
Date/Time of Note Date/Time of Note DATE: 01/09/17 TIME: 22:41 Assessment/Plan Assessment/Plan Chief Complaint/Hosp Course Subjective: Alert, feels good, no pain, no dysuria, no fevers Abx: Azactam PHYSICAL EXAMINATION: GENERAL: The patient is a 21-year-old female who is 31 weeks into her , readmitted with CVA flank pain. SKIN: Without generalized rash. HEENT: Within normal limits. NECK: Supple. LYMPH NODES: None palpable. CHEST: Decreased breath sounds at the bases. HEART: Without murmur or gallop. ABDOMEN: Soft, nontender, +BT EXTREMITIES: Without cyanosis, clubbing, or edema. RECTAL AND GENITAL: Exam is deferred. NEUROLOGIC EVALUATION: No focal neurological abnormalities. Assessment: 1. Acute pyelonephritis==> cx + PSA 2. SIRS 3. Plan: Continues to improve, refusing PICC, continue Azactam for 6 more days, CM to arrange dc plan with home health DW pt/RN Asif Bonilla Problems: Consultation Date/Type/Reason Admit Date/Time Jan 03, 2017 at 03:59 Type of Consultation: id Exam/Review of Systems Vital Signs Vitals Intake and Output 01/08/17 01/08/17 01/09/17 15:00 23:00 07:00 Intake Total 1125 ml 425 ml 1000 ml Output Total 700 ml 450 ml Balance 425 ml -25 ml 1000 ml Results Result Diagram: 01/07/17 1545 Medications Medications Current Medications Lactated Ringer's (Lr) 1,000 ml @ 125 mls/hr Q8H IV Last administered on 19:52; Admin Dose 125 MLS/HR; Start 01/03/17 at 03:52 Prenat Multivit/ [place]/Iron/Folic Ac 1 tab 1 tab DAILY PO Last administered on 01/09/17 08:57; Admin Dose 1 TAB; Start 01/03/17 at 09:00 Aztreonam (Azactam 1gm/NS (Pmx)) 50 ml @ 100 mls/hr Q8 IVPB Last administered on 01/09/17 22:29; Admin Dose 100 MLS/HR; Start 01/04/17 at 16:30 MARY PINTO NP Jan 09, 2017 22:43
[2017-01-10] MEDS: AZTREONAM 1 GM/NS (PMX) 50 ML IVPB SCH ×3 (05:00→21:56)
[2017-01-10] MEDS: LACTATED RINGER'S 1,000 ML IV SCH ×3 (05:00→22:45)
--- NOTE | 2017-01-10 08:05 | QN ---
Documentation Comment patient seen and evaluated no complaints no contraction patient decline a PICC line vs stable afebrile ab no cva tenderness, gravid extremity no edema no calf tenderness a/ iup at 31 wks ga with resolved symptoms of pyelonephritis currently on iv antibiotics p/ discuss with ID to discharge home with current IV line instead of PICC line with home care EVELIN DE LEON MD Jan 10, 2017 08:05
[2017-01-10] MEDS: MULTIVIT/MIN/FOLATE/IRON/PREN TAB PO SCH (09:05)
[2017-01-11] MEDS: AZTREONAM 1 GM/NS (PMX) 50 ML IVPB SCH ×3 (06:01→22:08)
[2017-01-11] MEDS: LACTATED RINGER'S 1,000 ML IV SCH ×4 (06:07→22:08)
[2017-01-11] MEDS: MULTIVIT/MIN/FOLATE/IRON/PREN TAB PO SCH (08:46)
--- NOTE | 2017-01-11 17:27 | QN ---
Documentation Comment Laborist for Dr Sanders 21 y.o. G1 with recurrent pyelonephritis with Pseudomonas on Azactam until . Pt's CVAT took a long time to resolve but is gone now. Pt feels well and is w/o complaints except is having some issues with her boyfriend. Afebrile, VSS. No CVAT. P; Continue ABX until 01/15 to ensure pt is completely treated. JAMARCUS TIMMONS MD Jan 11, 2017 17:27
[2017-01-12] MEDS: AZTREONAM 1 GM/NS (PMX) 50 ML IVPB SCH ×3 (05:46→21:42)
[2017-01-12] MEDS: LACTATED RINGER'S 1,000 ML IV SCH ×3 (05:46→21:42)
[2017-01-12] MEDS: MULTIVIT/MIN/FOLATE/IRON/PREN TAB PO SCH (09:02)
--- NOTE | 2017-01-12 11:14 | QN ---
Documentation Comment patient seen and evaluated no complaints no contraction patient decline a PICC line vs stable afebrile ab no cva tenderness, gravid extremity no edema no calf tenderness a/ iup at 32 wks ga with resolved symptoms of pyelonephritis currently on iv antibiotics p/ continue present management until 01/15/17 EVELIN DE LEON MD Jan 12, 2017 11:14
[2017-01-13] MEDS: AZTREONAM 1 GM/NS (PMX) 50 ML IVPB SCH ×3 (05:57→22:04)
[2017-01-13] MEDS: LACTATED RINGER'S 1,000 ML IV SCH ×3 (05:57→23:24)
--- NOTE | 2017-01-13 07:07 | QN ---
Documentation Comment patient seen and evaluated no complaints no contraction patient decline a PICC line vs stable afebrile ab no cva tenderness, gravid extremity no edema no calf tenderness a/ iup at 32 wks ga with resolved symptoms of pyelonephritis currently on iv antibiotics p/ continue present management until 01/15/17 EVELIN DE LEON MD Jan 13, 2017 07:07
[2017-01-13] MEDS: MULTIVIT/MIN/FOLATE/IRON/PREN TAB PO SCH (08:56)
[2017-01-14] MEDS: AZTREONAM 1 GM/NS (PMX) 50 ML IVPB SCH ×3 (05:39→22:11)
[2017-01-14] MEDS: MULTIVIT/MIN/FOLATE/IRON/PREN TAB PO SCH (10:09)
[2017-01-14] MEDS: LACTATED RINGER'S 1,000 ML IV SCH ×2 (10:09→18:46)
[2017-01-15] MEDS: LACTATED RINGER'S 1,000 ML IV SCH ×2 (02:48→12:36)
[2017-01-15] MEDS: AZTREONAM 1 GM/NS (PMX) 50 ML IVPB SCH ×2 (05:54→14:00)
[2017-01-15] MEDS: MULTIVIT/MIN/FOLATE/IRON/PREN TAB PO SCH (09:40)
--- NOTE | 2017-01-15 13:19 | PD.PPDC ---
ANGULAR DEVELOPER Discharge Instruction Condition Patient Condition: Good Diet Diet: Resume Regular Diet Activity/Restrictions Restrictions: No Sexual Activity Nothing in the Vagina No [place] Follow-up Follow-up with Physician: 1, Week/Weeks Return to clinic for VICE PRESIDENT CLIENT SERVICES Instructions: Fever greater than 101 Chills Worsening abdominal pain Excessive Vaginal Bleeding More than 2 pads per hour Unable to tolerate diet OB Instructions: Breast Tenderness Depression Blurried Vision Headache EVELIN DE LEON MD Jan 15, 2017 13:19
--- NOTE | 2017-01-15 16:23 | DS ---
DATE OF ADMISSION: 01/03/2017 DATE OF DISCHARGE: 01/15/2017 PRIMARY DIAGNOSIS: A 21-year-old 1, para 0, intrauterine at 33 weeks gestational age with pyelonephritis/pseudomonas, undelivered. PROCEDURE: None. CONDITION ON DISCHARGE: Stable. ACTIVITY: As tolerated. DIET: Regular. MEDICATIONS ON DISCHARGE: Continue vitamins. DISCHARGE SUMMARY: Ms. Breanna Retana is a 21-year-old 1, para 0, intrauterine at 33 weeks and 1 day gestational age, was readmitted on 01/03/2017 secondary to pyelonephritis. She was seen and evaluated by infectious disease specialists, which recommended IV antibiotics. Dur ing her hospitalization, her symptoms of pyelonephritis have resolved. She is currently asymptomati c. She denies any nausea, vomiting, shortness of breath, or visual changes. She will follow up in the office next week for her regular care. The patient was instructed to return to the [facility] if she has any signs of nausea, vomiting, shortness of breath, flank pain or fever. Dictated By: EVELIN GERMAIN/MARY JANE Conf#: [id number] DID#: [id number]
== END 2017-01-15 14:41 | disposition home or self-care (01) | DRG 781 ==
LOC: OBT 02:12 → L-D 02:12 → OBT 03:58 → OBG 03:59
PROVIDERS: ADMIT Obstetrics & Gynecology; ATTEND Obstetrics & Gynecology
PROC: 4A1HX4Z Monitoring of Products of Conception, Cardiac Electrical Activity, External Approach (ICD-10-PCS; principal; 2017-01-03)
DX: O23.03 Infections of kidney in pregnancy, third trimester (principal); B96.5 Pseudomonas (aeruginosa) (mallei) (pseudomallei) as the cause of diseases classified elsewhere; Z3A.31 31 weeks gestation of pregnancy
CPT/HCPCS: 80048; 80170; 80307; 81001; 81003; 82565; 84520; 85025; 87086; G0463; J1580; J1885; J7120

== ENCOUNTER 2018-02-02 22:10 | Emergency (ER) | END 2018-02-03 03:07 | disposition home or self-care (01) ==

== ENCOUNTER 2018-08-12 10:47 | Emergency (ER) | END 2018-08-12 12:22 | disposition home or self-care (01) ==

== ENCOUNTER 2018-12-14 03:42 | Emergency (ER) | payer MEDICAID ==
[~2018-12-14] VITALS: Ht 152.4 cm; Wt 64.7 kg
[~2018-12-14 03:42] MED LIST changes: +IBUP-1542 PO; -LEVO500T10 PO; -LEVO500T72 PO
[2018-12-14 03:53] VITALS: BP 113/64; PULSE 92; RESP 19; Ht 152.4 cm; Wt 64.7 kg
[2018-12-14] MEDS ORDERED: ACETAMINOPHEN 500 MG TAB PO STA (04:05)
--- NOTE | 2018-12-14 04:18 | ERD ---
ER Documentation Chief Complaint Chief Complaint BACK PAIN WITH COUGH X2DAYS; 18WKS PREG HPI This is a 23-year-old female who presents emergency department with complaints of productive cough for about a week. Also complains pelvic pain/cramping, back pain. LMP: August 07, 2018. FELICITAS: 05/16/2019. . Denies headache, head injury, loss of consciousness, dizziness, neck pain, neck stiffness, throat pain, difficulty swallowing, difficulty breathing lying flat, shoulder pain, chest pain, back pain, nausea, vomiting, constipation, diarrhea, urinary symptoms, loss of bowel and bladder control, trauma, injury, falls, difficulty walking due to pain, numbness or tingling sensation, calf pain, recent travel, recent major surgery in the last 3 weeks, calf pain, recent long travel, recent exposure to any illness, recent antibiotic use in the last 3 months, fever, chills, seizures. Past medical history: Surgical history: x1. Social: Denies smoking, use of alcoholic beverages, use of illegal drugs. ROS All systems reviewed and are negative except as per history of present illness. Medications Home Meds Active Scripts Vit No.124/Iron/FA ( Vitamin Tablet) 1 Each Tablet, 1 EACH PO DAILY, #30 TAB Prov:WILLIAM VALLADARES F 12/14/18 Acetaminophen* (Tylophen*) 500 Mg Capsule, 1 CAP PO Q6H PRN for PAIN AND OR ELEVATED TEMP, #20 CAP Prov:WILLIAM VALLADARES F 12/14/18 Amoxicillin* (Amoxicillin*) 500 Mg Cap, 500 MG PO TID for 7 Days, CAP Prov:WILLIAM VALLADARES F 12/14/18 Ibuprofen* (Motrin*) 600 Mg Tab, 600 MG PO Q6, #30 TAB Prov:AVERY BUSTOS PA-C 08/12/18 Reported Medications Multivit/Min/Fol Ac/Iron/Pren* ( S*) 1 Tab Tab, 1 TAB PO DAILY, TAB 10/22/16 Folic Acid* (Folic Acid*) 1 Mg Tablet, 1 MG PO DAILY, TAB 10/22/16 Allergies Allergies: Coded Allergies: No Known Drug Allergies (Verified Allergy, Mild, 08/12/18) PMhx/Soc History of Surgery: Yes () Anesthesia Reaction: No Hx Neurological Disorder: No Hx Respiratory Disorders: No Hx Cardiac Disorders: No Hx Psychiatric Problems: No Hx Miscellaneous Medical Probl: No Hx Alcohol Use: No Hx Substance Use: No Hx Tobacco Use: No Physical Exam Vitals Vital Signs Date Temp Pulse Resp B/P (MAP) Pulse Ox O2 O2 Flow FiO2 Time Delivery Rate 12/14/18 98.1 92 19 113/64 98 03:53 (80) Physical Exam Const: No acute distress Head: Atraumatic Eyes: Normal Conjunctiva ENT: Normal External Ears, Nose and Mouth. Neck: Full range of motion. No meningismus. Resp: Clear to auscultation bilaterally Cardio: Regular rate and rhythm, no murmurs Abd: Soft, non tender, non distended. Normal bowel sounds. Negative Herman sign. No CVA tenderness. Skin: No petechiae or rashes Back: No midline or flank tenderness Ext: No cyanosis, or edema Neur: Awake and alert Psych: Normal Mood and Affect Result Diagram: 12/14/1842212/14/18422 Results 24 hrs Laboratory Tests Test 12/14/18 04:23 White Blood Count 10.5 10^3/ul Red Blood Count 4.09 10^6/ul Hemoglobin 12.8 g/dl Hematocrit 37.2 % Mean Corpuscular Volume 91.0 fl Mean Corpuscular Hemoglobin 31.3 pg Mean Corpuscular Hemoglobin Concent 34.4 g/dl Red Cell Distribution Width 12.9 % Platelet Count 262 10^3/UL Mean Platelet Volume 10.1 fl Immature Granulocytes % 0.900 % Neutrophils % 65.6 % Lymphocytes % 20.2 % Monocytes % 7.9 % Eosinophils % 4.6 % Basophils % 0.8 % Nucleated Red Blood Cells % 0.0 /100WBC Immature Granulocytes # 0.090 10^3/ul Neutrophils # 6.9 10^3/ul Lymphocytes # 2.1 10^3/ul Monocytes # 0.8 10^3/ul Eosinophils # 0.5 10^3/ul Basophils # 0.1 10^3/ul Nucleated Red Blood Cells # 0.0 10^3/ul Urine Color YELLOW Urine Clarity SLIGHTLY CLOUDY Urine pH 6.0 Urine Specific [place] 1.016 Urine Ketones NEGATIVE mg/dL Urine Nitrite NEGATIVE mg/dL Urine Bilirubin NEGATIVE mg/dL Urine Urobilinogen NEGATIVE mg/dL Urine Leukocyte Esterase TRACE Freddy/ul Urine Microscopic RBC 32 /HPF Urine Microscopic WBC 2 /HPF Urine Squamous Epithelial Cells FEW /HPF Urine Bacteria FEW /HPF Urine Hemoglobin 2+ mg/dL Urine Glucose NEGATIVE mg/dL Urine Total Protein NEGATIVE mg/dl Sodium Level 135 mmol/L Potassium Level 3.3 mmol/L Chloride Level 105 mmol/L Carbon Dioxide Level 21 mmol/L Anion Gap 9 Blood Urea Nitrogen 8 mg/dl Creatinine 0.52 mg/dl Est Glomerular Filtrat Rate mL/min > 60 mL/min Glucose Level 107 mg/dl Calcium Level 9.0 mg/dl Total Bilirubin 0.3 mg/dl Direct Bilirubin 0.00 mg/dl Indirect Bilirubin 0.3 mg/dl Aspartate Amino Transf (AST/SGOT) 18 IU/L Alanine Aminotransferase (ALT/SGPT) 8 IU/L Alkaline Phosphatase 67 IU/L Total Protein 6.9 g/dl Albumin 3.7 g/dl Globulin 3.20 g/dl Albumin/Globulin Ratio 1.15 Amylase Level 100 U/L Lipase 84 U/L Beta HCG, Quantitative 37170.0 mIU/ml Current Medications Medications Dose Sig/Vicki Start Time Status Last (Trade) Ordered Route PRN Stop Time Admin Dose Reason Admin 500 mg ONCE STAT 12/14/18 DC 12/14/18 Acetaminophen PO 04:05 04:34 (Tylenol 12/14/18 04:09 Tab) Potassium 20 meq ONCE STAT 12/14/18 DC 12/14/18 Chloride PO 05:30 05:36 (Klor-Con 20) 12/14/18 05:31 Procedures/MDM Diagnostic tests: Urinalysis: Reviewed. Culture urine: Sent. HCG quantitative: 51404.0 Type and Rh: O Positive. Blood works: Reviewed. OB ultrasound: 1. Single viable intrauterine gestation of 18 weeks 2 days by ultrasound criteria. 2. Estimated date of delivery of 05/15/2019. Treatment: Tylenol p.o. Re-evaluation: Denies pain. Denies vaginal bleeding. Differential diagnosis I have low suspicion for sepsis, PNA. I have low suspicion for cholecystitis, pyelonephritis, appendicitis, hemorrh aging Final diagnosis: Bronchitis; pelvic pain in . Prescription: Amoxicillin. Tylenol. vitamins. Follow-up with OB in the next 24-48 hours. Come back here in the emergency dep artment for any new symptoms or any worsening symptoms. All questions and concerns were answered. Patient and family members verbalized understanding and agreed with plan of care. Hemodynamically stable on discharge. Departure Diagnosis: Primary Impression: Pelvic abnormality during in second trimester, antepartum Additional Impression: Bronchitis Condition: Stable Additional Instructions: Follow-up with OB in the next 24-48 hours. Come back here in the emergency department for any new symptoms or any worsening symptoms. WILLIAM VALLADARES Dec 14, 2018 04:18
[2018-12-14] MEDS ORDERED: POTASSIUM CHLORIDE (SR) 20 MEQ TAB PO STA (05:30)
[2018-12-14] MEDS ORDERED: ACET500C5 PO (05:57)
[2018-12-14] MEDS ORDERED: AMOX500C2 PO (05:57)
[2018-12-14] MEDS ORDERED: PREN-93 PO (05:58)
== END 2018-12-14 06:08 | disposition home or self-care (01) ==
LOC: FTE 03:42
DX: O26.892 Other specified pregnancy related conditions, second trimester (principal); R10.2 Pelvic and perineal pain; O99.512 Diseases of the respiratory system complicating pregnancy, second trimester; J40 Bronchitis, not specified as acute or chronic; Z3A.18 18 weeks gestation of pregnancy
CPT/HCPCS: 76805; 80053; 81001; 82150; 83690; 84702; 85025; 86900; 86901; 87086; Z7610

== ENCOUNTER 2019-03-15 18:20 | Inpatient (IN) | payer MEDICAID, OTHER ==
[~2019-03-15] VITALS: Ht 154.9 cm; Wt 78.3 kg
[~2019-03-15 18:20] MED LIST changes: +ACET500C5 PO; +AMOX500C2 PO; +PREN-93 PO
[2019-03-15 19:19] VITALS: Ht 154.9 cm; Wt 78.3 kg
[2019-03-15] MEDS ORDERED: LACTATED RINGER'S 1,000 ML IV SCH (21:36)
--- NOTE | 2019-03-15 22:23 | PREOPHP ---
DATE OF ADMISSION: 03/15/2019 HISTORY OF PRESENT ILLNESS: Ms. Breanna Lao is a 23-year-old 2, para 1, EDC 05/12/2019 , intrauterine at 31 weeks and 5 days gestational age, presented to triage complaining of v aginal spotting of bright red blood with lower abdominal tenderness at her last incision si te. She is currently lying in supine position with no apparent distress. She denies any headache, n ausea, vomiting, shortness of breath, or visual changes. Her care took place at [facility]. PAST MEDICAL HISTORY: None. MEDICATIONS: vitamins. PAST SURGICAL HISTORY: x1 previous . OBSTETRIC HISTORY: x1 previous . GYNECOLOGIC HISTORY: 13, regular 3 to 4 days. Denies any sexually transmitted disease. Sexually ac tive with one partner. SOCIAL HISTORY: Denies any smoking, drugs or alcohol. FAMILY HISTORY: None. REVIEW OF SYSTEMS: All within normal except history of present illness. PHYSICAL EXAMINATION: HEENT: Within normal. LUNGS: CTA bilateral. CARDIOVASCULAR: S1, S2. Regular rate and rhythm. ABDOMEN: Soft, nontender. Negative CVA bilateral. EXTREMITIES: No calf tenderness. PELVIC: Vaginal exam, no active bleeding or spotting. heart tracing category 1. Tocometer: Positive variability. H and H 10/30.3. ASSESSMENT: Intrauterine at 31 weeks and 5 days gestational age, history of 1 x1 previous section, third trimester vaginal bleeding, currently stable. PLAN: Continue to monitor patient closely and repeat CBC in the AM. Perinatology consult. Steroid treatment. Iron supplement. Dictated By: EVELIN DE LEON MD ME/MARY JANE Conf#: [id number] DID#: [id number] CC: MALI GARCIA MD; GILDARDO HOLLAND MD; ROXANE TRISTAN MD; ANAID DIXON MD; LUKE HEDRICK MD; CORY BALLESTEROS MD; ALEM JACOB DO; EVELIN CAGE MD;*EndCC*
--- NOTE | 2019-03-15 22:46 | TRIAGE ---
OB Triage Datetime Report Generated by CPN: 03/15/2019 22:46 Datetime: 03/15/2019 22:35 Stage of : OB Triage Datetime: 03/15/2019 21:14 Vaginal Exam Membrane Status: Intact Datetime: 03/15/2019 20:23 Monitor Mode: External US Comments: CONTINUOUS MONITORING WITH LOSS OF CONTACT D/T MOVEMENT. PT CONFIRMS MOVEMENT FETUS IN BREECH POSITION Datetime: 03/15/2019 19:55 Assessment Type: Triage Maternal Assessment Level of Consciousness: Fully Conscious DTR's/Clonus: DTRs 2+; No Clonus Headache: Denies Blurred Vision: No Respiratory Effort: Unlabored; Regular Rhythm; Equal Expansion Breath Sounds, Left: Clear and Equal Breath Sounds, Right: Clear and Equal Nausea/Vomiting: Denies RUQ Epigastric Pain: Denies Lower Extremities Edema: None Degree: None Upper Extremities Edema: None Degree: None Facial Edema: None Fall Risk Assessment History of Falling: (0) No Secondary Diagnosis: (0) No Ambulatory Aid: (0) Bedrest/Nurse Assist IV Therapy: (0) No Gait: (0) Normal/Bedrest/Immobile Mental Status: (0) Oriented to Own Ability Fall Score: 0 Fall Risk Score Definition: No Risk: No action required Datetime: 03/15/2019 19:45 Labor Evaluation Frequency: 0 Monitor Mode: External Duration (sec)2399: 0 Pattern: Normal: <= 5 Contractions in 10 Minutes Contraction Comments: PT DENIES ABD PAIN/CRAMPING AT THIS TIME Heart Rate FHR Baseline Rate: 145 Monitor Mode: External US FHR Baseline Changes: No Baseline Change Variability: Moderate 6-25 bpm Accelerations: 10X10 Datetime: 03/15/2019 19:25 Monitor Mode: External US Datetime: 03/15/2019 19:03 EGA: 31.5 Datetime: 03/15/2019 18:19 Time of Arrival: 03/15/2019 18:19 Arrived By: Ambulatory Arrived From: Home Chief Complaint: PT came in c/o spotting and cramping since this am bright red blood Movement: Present Contractions: Irregular Time Contractions Began: 03/15/2019 08:00 Rupture of Membranes: Denies Vaginal Discharge: Denies Recent Sexual Intercouse: Denies Abdominal Trauma: Not Applicable Additional Patient Complaints: none Time Provider Notified: 03/15/2019 19:30 Provider Notified: MIO
[2019-03-15] MEDS ORDERED: BETAMET NA PHOS/AC(6 MG/ML) 2 ML INJ SYG IM SCH (23:00)
[2019-03-16] MEDS ORDERED: PRENATAL VITAMIN PO SCH (09:00)
[2019-03-16] MEDS ORDERED: FERROUS SULFATE (EC) 325 MG TAB PO SCH (09:00)
== END 2019-03-15 22:35 | disposition left against medical advice (07) | DRG 833 ==
LOC: OBT 18:20 → L-D 18:21 → OBT 21:45 → PP1 21:45
PROVIDERS: ADMIT Obstetrics & Gynecology; ATTEND Obstetrics & Gynecology
DX: O26.853 Spotting complicating pregnancy, third trimester (principal); O34.219 Maternal care for unspecified type scar from previous cesarean delivery; Z3A.31 31 weeks gestation of pregnancy
CPT/HCPCS: 76817; 76818; 80307; 81001; 85025; 86850; 86900; 86901; 87086; G0463; J0702; J7120

== ENCOUNTER 2019-05-05 21:50 | Inpatient (IN) | payer OTHER ==
[~2019-05-05] VITALS: Ht 154.9 cm; Wt 80.5 kg
[~2019-05-05 21:50] MED LIST changes: -ACET500C5 PO; -AMOX500C2 PO; -IBUP-1542 PO; -PRENAT PO
[2019-05-05 22:35] VITALS: BP 102/59; PULSE 57; RESP 18
[2019-05-05] MEDS ORDERED: CARBOPROST 250 MCG INJ IM PRN (23:30)
[2019-05-05] MEDS ORDERED: OXYTOCIN 30 UNITS/LR 500 ML IV SCH (23:30)
[2019-05-05] MEDS ORDERED: MISOPROSTOL 200 MCG TAB PR PRN (23:30)
[2019-05-05] MEDS ORDERED: OXYTOCIN 30 UNITS/LR 500 ML IV PRN (23:30)
[2019-05-05] MEDS ORDERED: METHYLERGONOVINE 0.2 MG INJ IM PRN (23:30)
[2019-05-06] MEDS: LACTATED RINGER'S 1,000 ML IV SCH ×3 (02:05→12:40)
--- NOTE | 2019-05-06 10:32 | PREAC ---
Date/Time of Note Date/Time of Note DATE: 05/06/19 TIME: 10:30 Anesthesia Eval and Record Evaluation Time Pre-Procedure Interview DATE: 05/06/19 TIME: 10:30 Age 23 Sex female NPO: 8 hrs Preoperative diagnosis Repeat in Labor Planned procedure Past Medical History Past Medical History: Includes Heme: Anemia : : (2), Para: (1), Gestational age: (39) Surgery & Anesthesia Issues No known issue Meds Anticoagulation: No Beta Jasmin within 24 hr: No Reason Beta Jasmin not given: Pt. not on B-Jasmin Active Scripts Vit No.124/Iron/FA ( Vitamin Tablet) 1 Each Tablet, 1 EACH PO DAILY, #30 TAB Prov:WILLIAM VALLADARES 12/14/18 Reported Medications Folic Acid* (Folic Acid*) 1 Mg Tablet, 1 MG PO DAILY, TAB 10/22/16 Current Medications Lactated Ringer's 1,000 ml @ 125 mls/hr Q8H IV Last administered on 05/06/19at 05:05; Admin Dose 125 MLS/HR; Start 05/05/19 at 23:25 Oxytocin/Lactated Ringer's 500 ml @ 125 mls/hr POST IV ; Start 05/05/19 at 23:30 Oxytocin/Lactated Ringer's 500 ml @ 0 mls/hr ONCE PRN IV .VAGINAL BLEEDING; Start 05/05/19 at 23:30 Methylergonovine Maleate (Methergine) 0.2 mg ONCE PRN IM .VAGINAL BLEEDING; Start 05/05/19 at 23:30 Carboprost Tromethamine (Hemabate) 250 mcg ONCE PRN IM .VAGINAL BLEEDING; Start 05/05/19 at 23:30 Misoprostol (Cytotec) 1,000 mcg ONCE PRN AL .VAGINAL BLEEDING; Start 05/05/19 at 23:30 Meds reviewed: Yes Allergies Coded Allergies: No Known Drug Allergies (Verified Allergy, Mild, 05/05/19) Allergies Reviewed: Yes Labs/Studies Labs Reviewed: Reviewed by anesthesiologist Result Diagram: 05/05/19 9910 Laboratory Tests 05/05/19 23:50 Blood Bank Test 05/05/19 23:50 Antibody Screen NEGATIVE Blood Type O POSITIVE Rh Immune Globulin Candidate NO test: Positive Studies: ECG (n/a), CXR (n/a) Pre-procedure Exam Last vitals Vital Signs Date Temp Pulse Resp B/P (MAP) Pulse Ox O2 O2 Flow FiO2 Time Delivery Rate 05/05/19 97.8 57 18 102/59 Room Air 22:35 (73) Airway: Adequate mouth opening, Adequate thyromental dist Mallampati: Mallampati II Teeth: Normal Lung: Normal Heart: Normal ASA Physical Status ASA physical status: 2 Emergency: None Planned Anesthetic Neuraxial: Spinal Planned Pain Management Sub-arachniod narcotics, Parenteral pain med Pre-operative Attestations Prior to commencing anesthesia and surgery, the patient was re-evaluated, there was verification of: *The patient's identity *The results of appropriate recent lab work and preoperative vital signs *The above evaluation not changing prior to induction *Anesthetic plan, risk benefits, alternative and complications discussed with patient/family; questions answered; patient/family understands, accepts and wishes to proceed. PATTIE MONTOYA MD May 06, 2019 10:32
[2019-05-06] MEDS ORDERED: ONDANSETRON 4 MG INJ IV ONE (11:00)
[2019-05-06] MEDS ORDERED: CITRIC ACID/NA CITRATE 30 ML CUP PO ONE (11:00)
[2019-05-06] MEDS ORDERED: CEFAZOLIN 2 GM/50 ML (PMX) 50 ML IVPB ONE (12:30)
[2019-05-06] MEDS ORDERED: AZITHROMYCIN 500MG/NS (PMX) 250 ML IVPB ONE (12:30)
--- NOTE | 2019-05-06 13:48 | HP ---
Date/Time of Note Date/Time of Note DATE: 05/06/19 TIME: 13:45 OB - History Hx of Present Free Text/Dictation 23-year-old female 2 para 1 at term gestation admitted complaining of onset of uterine contractions few hours prior to admission and denies rupture of membrane no vaginal bleeding She has history of previous x1 Chief Complaint: Uterine contractions Last Menstrual Period: Jul 31, 2018 Estimated Due Date: May 12, 2019 : 2 Para: 1 Care: Good Care Ultrasounds: Normal mid trimester US Obstetrical Complications: None Medical Complications: None, Other (Previous x1) Past Family/Social History * Past Medical, Surgical, Family and Obstetric Histories reviewed from chart. Blood Type: O+ Rubella: immune RPR/VDRL: Negative GBS Status: Negative HBsAG: Negative OB Admission Exam Vital Signs Vital Signs Vital Signs Date Temp Pulse Resp B/P (MAP) Pulse Ox O2 O2 Flow FiO2 Time Delivery Rate 05/05/19 97.8 57 18 102/59 Room Air 22:35 (73) Physical Exam HEENT: WNL Heart: Rhythm Normal Lungs: Clear, Equal Abdomen: WNL Extremities: Normal Reflexes: Normal Cervical Dilatation: None Effacement: 0% Station: -3 Membranes: Intact Heart Rate: 140's Accelerations: Accelerations Present Decelerations: No Decelerations Varibility: Marked Contractions on Admission: 6-10 Minutes Apart Date/Time Contractions Began: 05/05/2019 Frequency of Contractions: Every 5 to 10 minutes Intensity: Mild Last 72 hours Lab Results CBC & BMP 05/05/19 23:50 OB Assessment/Plan Other Assessment: Term gestation He has section Other plan: Patient requests to have a repeat section DRU REYES MD May 06, 2019 13:48
[2019-05-06] MEDS ORDERED: morphine SULFATE/PF (10 MG/10 ML) INJ ONE (14:04)
[2019-05-06] MEDS ORDERED: PHENYLephrine (100 MCG/ML) 10ML SYG ONE (14:04)
[2019-05-06] MEDS ORDERED: OXYTOCIN 10 UNIT INJ ONE (14:05)
[2019-05-06] MEDS ORDERED: METOCLOPRAMIDE 10 MG INJ ONE (14:43)
[2019-05-06] MEDS ORDERED: DEXAMETHASONE 4 MG/ML 1 ML INJ ONE (14:43)
[2019-05-06] MEDS ORDERED: KETOROLAC 30 MG INJ ONE (14:43)
[2019-05-06] MEDS ORDERED: MEPERIDINE 100 MG INJ ONE (14:49)
[2019-05-06] MEDS ORDERED: HYDROCODONE/APAP (5/325) TAB PO PRN ×2 (15:00→19:00)
[2019-05-06] MEDS ORDERED: NALOXONE (0.4 MG/ML) INJ IV PRN (15:00)
[2019-05-06] MEDS ORDERED: EPHEDrine 25 MG/5 ML SYG IV PRN (15:00)
[2019-05-06] MEDS ORDERED: DIPHENHYDRAMINE 50 MG INJ IV PRN (15:00)
[2019-05-06] MEDS ORDERED: ONDANSETRON 4 MG INJ IV PRN ×2 (15:00)
[2019-05-06] MEDS ORDERED: ACETAMINOPHEN 500 MG TAB PO PRN (15:00)
[2019-05-06] MEDS ORDERED: OXYCODONE/ACETAMINOPHEN (5/325) TAB PO PRN ×2 (15:00→19:00)
[2019-05-06] MEDS ORDERED: NALBUPHINE HCL (10 MG/1 ML) INJ IV PRN (15:00)
[2019-05-06] MEDS ORDERED: HYDROmorphONE 0.5 MG/0.5 ML SYG IV PRN (15:00)
[2019-05-06] MEDS ORDERED: morphine 2 MG INJ IV PRN ×2 (15:00)
[2019-05-06] MEDS ORDERED: HYDROmorphONE 1 MG/5 ML IV SYRINGE IV PRN ×2 (15:00)
[2019-05-06] MEDS ORDERED: METOCLOPRAMIDE 10 MG INJ IV PRN (15:00)
[2019-05-06] MEDS ORDERED: FENTAnyl 50 MCG/ML VIAL IV PRN ×2 (15:00)
--- NOTE | 2019-05-06 15:05 | PAC ---
Date/Time of Note Date/Time of Note DATE: 05/06/19 TIME: 15:05 Post-Anesthesia Notes Post-Anesthesia Note Last documented vital signs Vital Signs Date Temp Pulse Resp B/P (MAP) Pulse Ox O2 O2 Flow FiO2 Time Delivery Rate 05/06/19 97.8 57 18 102/59 Room Air 15:05 (73) Activity: WNL Respiratory function: WNL Cardiovascular function: WNL Mental status: Baseline Pain reasonably controlled: Yes Hydration appropriate: Yes Nausea/Vomiting absent: Yes PATTIE MONTOYA MD May 06, 2019 15:05
[2019-05-06] MEDS: KETOROLAC 30 MG INJ IV PRN (17:10)
--- NOTE | 2019-05-06 18:17 | OPR ---
Operative Report Planned Procedure Procedure date May 06, 2019 Procedure(s) Repeat section Performed by see signature line Jointer Machine: RUTHIE DUKE MD Anesthesiologist: PATTIE MONTOYA MD Pre-procedure diagnosis Term gestation Labor contractions Previous section [id number] Anesthesia Type: Ryxao2l spinal Post-Procedure Post-procedure diagnosis Repeat section per request Findings Live Baby in OT position Clear amniotic fluid Normal-appearing right and left fallopian tubes and ovaries Estimated Blood Loss: 500 - 600 mls Specimen(s) none Grafts/Implant(s) none Complication(s) none Pt Condition post procedure: stable Disposition: PACU Procedure Description Under satisfactory anaesthesia a Pfannenstiel incision was made two fingerbreadth above and parallel to the symphysis of pubis around the previous scar and previous scar was removed Incision was extended laterally to the border of the Recti muscles on either sides. Incision was carried down with sharp and blunt dissection until fascia was reached. Anterior Recti muscle fascia was incised in mid portion and incision extended laterally to the border of skin incision. Fascia was mobilized from muscle superiorly and Recti muscles were from midline using sharp and blunt dissection. Peritoneum was visualized; Avoiding bowel and bladder it was incised . Incision was extended superiorly and inferiorly. Bladder blade was placed. Posterior peritoneum covering the lower segment of the uterus and lower segment of the uterus were incised.Low transverse uterine incision was made on lower segment of the uterus. Incision extended laterally to the border of Round Lig. on either si reddy and baby was delivered from OT. position . Amniotic fluid appeared clear. Cord blood was obtained and cord had 3 vessels . Placenta was delivered spontaneously and appeared intact and complete. Intrauterine cavity was rubbed with a laparotomy sponge. Uterine incision was closed in 2 layers using running stitches of No1 Monocryl. Hemostasis appeared secure. Ovaries and Fallopian tubes were within normal limits. Announcing needle, lap sponge and instrument count to be correct abdomen was closed in layers as follows: Peritoneum and Recti muscles with running stitches of 2-0 Vicryl. Fascia with running stitch of No 1 PDS. Subcutaneous tissue with running stitches of 2-0 Monocryl and skin was closed using syed. Patient tolerated the procedure well and was transferred to [facility] in good condition. DRU REYES MD May 06, 2019 18:17
[2019-05-06 18:20] VITALS: BP 117/46; PULSE 81; RESP 20
[2019-05-06] MEDS ORDERED: LACTATED RINGER'S 1,000 ML IV SCH (18:38)
[2019-05-06] MEDS ORDERED: CARBOPROST 250 MCG INJ IM PRN (19:00)
[2019-05-06] MEDS ORDERED: MISOPROSTOL 200 MCG TAB PR PRN (19:00)
[2019-05-06] MEDS ORDERED: METHYLERGONOVINE 0.2 MG INJ IM PRN (19:00)
[2019-05-06] MEDS ORDERED: NA PHOSPHATE/BIPHOS 133 ML ENEMA PR PRN (19:00)
[2019-05-06] MEDS ORDERED: OXYTOCIN 30 UNITS/LR 500 ML IV PRN (19:00)
[2019-05-06 19:50] VITALS: BP 114/61; PULSE 72; RESP 18
[2019-05-06] MEDS: CEFAZOLIN 2 GM/50 ML (PMX) 50 ML IVPB SCH (21:06)
[2019-05-06] MEDS: SENNA/DOCUSATE NA (8.6MG/50MG) TAB PO SCH (21:06)
[2019-05-06] MEDS: HYDROmorphONE 0.5 MG/0.5 ML SYG IV PRN (21:18)
[2019-05-06] MEDS: LANOLIN HPA 1 PKT TOP PRN (22:56)
[2019-05-07 00:30] VITALS: BP 99/44; PULSE 68; RESP 19
[2019-05-07] MEDS: LACTATED RINGER'S 1,000 ML IV SCH ×3 (03:42→18:30)
[2019-05-07 04:00] VITALS: BP 108/53; PULSE 73; RESP 18
[2019-05-07] MEDS: CEFAZOLIN 2 GM/50 ML (PMX) 50 ML IVPB SCH ×2 (05:10→12:24)
[2019-05-07] MEDS: CLINDAMYCIN 300 MG CAP PO SCH ×5 (05:27→23:59)
[2019-05-07] MEDS: KETOROLAC 30 MG INJ IV PRN ×2 (05:27→11:33)
[2019-05-07] MEDS: HYDROmorphONE 0.5 MG/0.5 ML SYG IV PRN (06:17)
[2019-05-07 08:30] VITALS: BP 88/48; PULSE 75; RESP 18
[2019-05-07] MEDS: SENNA/DOCUSATE NA (8.6MG/50MG) TAB PO SCH ×2 (08:31→20:12)
--- NOTE | 2019-05-07 10:27 | PN ---
Date/Time of Note Date/Time of Note DATE: 05/07/19 TIME: 10:25 Assessment/Plan VTE Prophylaxis VTE Prophylaxis Intervention: ambulation Lines/Catheters IV Catheter Type (from Nrsg): Peripheral IV Assessment/Plan Assessment/Plan Status post postop day #1 Advance diet and ambulate and continue to monitor vital signs Subjective 24 Hr Interval Summary No bowel movement but passing flatus Constitutional: no complaints, improved, ambulates, BM, flatus, urine output Pain Control: well controlled Exam/Review of Systems Vital Signs Vitals Vital Signs Date Temp Pulse Resp B/P (MAP) Pulse Ox O2 O2 Flow FiO2 Time Delivery Rate 05/07/19 98.4 73 18 108/53 97 Room Air 04:00 (71) Intake and Output 05/06/19 05/06/19 05/07/19 1515:00 23:00 07:00 IntakeIntake Total 1425 ml 1550 ml 1425 ml OutputOutput Total 400 ml 826 ml 1400 ml BalanceBalance 1025 ml 724 ml 25 ml Exam Free Text/Dictation Abdomen is soft with present bowel sounds and abdomen does not seem distended Incision is covered Constitutional: alert, oriented, well developed Psych: no complaints, nl mood/affect Head: normocephalic, atraumatic Eyes: nl conjunctiva, EOMI, nl lids, nl sclera ENMT: nl external ears & nose, nl lips & teeth, nl nasal mucosa & septum, mu cosa pink and moist Neck: supple, non-tender Respiratory: clear to auscultation, normal air movement Cardiovascular: regular rate and rhythm, nl pulses Gastrointestinal: soft, nl liver, spleen, non-tender Musculoskeletal: nl extremities to inspection, nl gait and stance Extremities: normal pulses Neurological: WRITING MANAGER II-XII intact, nl mental status, nl speech, nl strength Skin: nl turgor, rash or lesions Lymph: nl lymph nodes Results Result Diagram: 05/07/19 0745 DRU REYES MD May 07, 2019 10:27
[2019-05-07] MEDS ORDERED: BISACODYL 10 MG SUPP PR ONE (11:30)
[2019-05-07 12:00] VITALS: BP 90/55; PULSE 77; RESP 18
[2019-05-07] MEDS: IBUPROFEN 800 MG TAB PO SCH ×2 (13:46→22:16)
[2019-05-07] MEDS: HYDROCODONE/APAP (5/325) TAB PO PRN ×3 (15:26→23:59)
[2019-05-07 16:15] VITALS: BP 99/52; PULSE 82; RESP 18
[2019-05-07] MEDS: LANOLIN HPA 1 PKT TOP PRN ×2 (17:32→22:21)
[2019-05-07 20:00] VITALS: BP 87/44; PULSE 77; RESP 17
[2019-05-08 04:00] VITALS: BP 92/48; PULSE 80; RESP 17
[2019-05-08] MEDS: IBUPROFEN 800 MG TAB PO SCH ×3 (06:00→21:21)
[2019-05-08] MEDS: HYDROCODONE/APAP (5/325) TAB PO PRN ×3 (06:42→22:35)
[2019-05-08] MEDS: CLINDAMYCIN 300 MG CAP PO SCH ×3 (06:43→17:42)
[2019-05-08 08:00] VITALS: BP 99/55; PULSE 72; RESP 18
[2019-05-08] MEDS: SENNA/DOCUSATE NA (8.6MG/50MG) TAB PO SCH ×2 (08:57→21:21)
[2019-05-08] MEDS ORDERED: ACET325T33 PO (13:50)
[2019-05-08] MEDS ORDERED: IBUP800T48 PO (13:51)
[2019-05-08] MEDS: OXYCODONE/ACETAMINOPHEN (5/325) TAB PO PRN ×2 (13:58→18:19)
[2019-05-08] MEDS ORDERED: ACETAMINOPHEN 325 MG TAB PO PRN (14:00)
--- NOTE | 2019-05-08 14:51 | DS ---
Date/Time of Note Date/Time of Note Home today or next day DATE: 05/08/19 TIME: 14:50 Obstetrical Discharge Record Final Diagnosis Final Diagnosis: Term delivered Other Final Diagnosis Status post Section Section: Repeat Condition on Discharge Physical Assessment Last Vitals: See nurse's notes Voiding: Yes Bowel Movement: Yes Breast: Soft, non-tender, Filling Fundus: Firm Abdomen and Incision: Abdomen is soft and nontender present bowel sounds Incision is clean without induration and erythema Calf Tenderness: No Patient Condition: Good DRU REYES MD May 08, 2019 14:51
--- NOTE | 2019-05-08 14:53 | DS ---
Date/Time of Note Date/Time of Note DATE: 05/08/19 TIME: 14:51 Discharge Summary Admission/Discharge Info Admit Date/Time May 05, 2019 at 23:05 Discharge Date/Time May 08 or May 09, 2019 Discharge Diagnosis Status post delivery Patient Condition: Good Procedures Repeat Hx of Present Illness 23-year-old female had repeat delivery in early labor Hospital Course She had uncomplicated hospitalization course She tolerated diet well and had a spontaneous bowel movement She was ambulating without problems Was discharged home on his second or third day with good prognosis and condition, fully ambulatory, diet Home Meds Active Scripts Ibuprofen* (Motrin*) 800 Mg Tab, 800 MG PO Q8, #60 TAB 0 Refills Prov:DRU REYES MD 05/08/19 Acetaminophen* (Tylenol*) 325 Mg Tablet, 650 MG PO Q6H PRN for MILD PAIN(1-3)OR ELEVATED TEMP, #60 TAB 0 Refills Prov:DRU REYES MD 05/08/19 Vit No.124/Iron/FA ( Vitamin Tablet) 1 Each Tablet, 1 EACH PO DAILY, #30 TAB Prov:WILLIAM VALLADARES 12/14/18 Reported Medications Folic Acid* (Folic Acid*) 1 Mg Tablet, 1 MG PO DAILY, TAB 10/22/16 Follow-up Plan She was asked to refer to clinic in 2 to 3 days for staple removal Primary Care Provider Arlene Robles MD Time spent on discharge: > 30 minutes Pending Labs Laboratory Tests Test 05/08/19 07:00 White Blood Count 12.4 10^3/ul (4.8-10.8) Red Blood Count 3.57 10^6/ul (4.20-5.40) Hemoglobin 8.8 g/dl (12.0-16.0) Hematocrit 28.4 % (37.0-47.0) Mean Corpuscular Volume 79.6 fl (82.0-101.0) Mean Corpuscular Hemoglobin 24.6 pg (29.0-33.0) Mean Corpuscular Hemoglobin Concent 31.0 g/dl (32.0-37.0) Red Cell Distribution Width 16.3 % (11.5-14.5) Platelet Count 326 10^3/UL (140-415) Mean Platelet Volume 10.0 fl (7.4-10.4) Immature Granulocytes % 1.200 % (0.001-0.429) Neutrophils % 73.2 % (39.0-77.0) Lymphocytes % 15.6 % (15.0-51.0) Monocytes % 8.1 % (0.0-11.0) Eosinophils % 1.4 % (0.0-7.0) Basophils % 0.5 % (0.0-2.0) Nucleated Red Blood Cells % 0.2 /100WBC (0.0-0.0) Immature Granulocytes # 0.150 10^3/ul (0.0-0.031) Neutrophils # 9.1 10^3/ul (1.6-7.5) Lymphocytes # 1.9 10^3/ul (0.8-2.9) Monocytes # 1.0 10^3/ul (0.3-0.9) Eosinophils # 0.2 10^3/ul (0.0-0.5) Basophils # 0.1 10^3/ul (0.0-0.1) Nucleated Red Blood Cells # 0.0 10^3/ul (0.0-0.0) DRU REYES MD May 08, 2019 14:53
--- NOTE | 2019-05-08 14:54 | PD.PPDC ---
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
[2019-05-08 16:00] VITALS: BP 102/61; PULSE 74; RESP 18
[2019-05-08 20:10] VITALS: BP 95/48; RESP 20
[2019-05-09] MEDS: CLINDAMYCIN 300 MG CAP PO SCH ×3 (00:34→11:10)
[2019-05-09] MEDS: HYDROCODONE/APAP (5/325) TAB PO PRN ×2 (02:24→08:00)
[2019-05-09 04:19] VITALS: BP 98/52; PULSE 60; RESP 18
[2019-05-09] MEDS: IBUPROFEN 800 MG TAB PO SCH ×3 (05:52→13:50)
[2019-05-09 08:00] VITALS: BP 104/61; PULSE 71; RESP 18
[2019-05-09] MEDS ORDERED: MEASLES,MUMPS,RUBELLA VACCINE INJ SC* ONE (09:00)
[2019-05-09] MEDS ORDERED: DIPHTH/TET/ACEL PERTUSS (ADULT) 0.5 ML VIAL IM* ONE (09:00)
[2019-05-09] MEDS: SENNA/DOCUSATE NA (8.6MG/50MG) TAB PO SCH (09:55)
[2019-05-09] MEDS: OXYCODONE/ACETAMINOPHEN (5/325) TAB PO PRN (11:10)
--- NOTE | 2019-05-10 15:31 | DELSUM ---
Delivery Summary A-C Datetime Report Generated by CPN: 05/10/2019 15:31 DELIVERY PERSONNEL Hazardous Materials Analyst: Laina Burcha MATERNAL INFORMATION Delivery Anesthesia: Spinal Medications in Delivery: see anesthesia records Delivery QBL (ml): 700 Placenta Cultured: No Maternal Complications: None Other Maternal Complications: 39.1 with uc's LABOR SUMMARY EDC: 05/12/2019 00:00 No. Babies in Womb: 1 Attempted: No Labor Anesthesia: None LABOR INFORMATION Reason for Induction: Not Applicable Oxytocin: N/A Group B Beta Strep: Negative Antibiotics # of Doses: Ancef 2grams/Azythromycin 500mg Antibiotics Time of Last Dose: 05/06/2019 14:04 Steroids Given: None Reason Steroids Not Administered: Not Applicable MEMBRANES Membranes Rupture Method: Artificial Rupture of Membranes: 05/06/2019 14:31 Length of Rupture (hr): 0.02 Amniotic Fluid Color: Clear Amniotic Fluid Amount: None Amniotic Fluid Odor: None STAGES OF LABOR Stage 3 hr: 0 Stage 3 min: 0 CSECTION DELIVERY Primary Indication: Repeat Elective Secondary Indication: N/A CSection Urgency: Non Elective CSection Incidence: Repeat Labor: N/A Elective: N/A CSection Incision: Lower Uterine Transverse BABY A INFORMATION Infant Delivery Date/Time: 05/06/2019 14:32 Method of Delivery: Born in Route : No : N/A Forceps: N/A Vacuum Extraction: N/A Shoulder Dystocia : N/A SHOULDER DYSTOCIA BABY A Delivery Date/Time: 05/06/2019 14:32 PRESENTATION/POSITION BABY A Presentation: Cephalic Cephalic Presentation: Vertex Vertex Position: Left Occipital Posterior Breech Presentation: N/A PLACENTA INFORMATION BABY A Placenta Delivery Time : 05/06/2019 14:32 Placenta Method of Delivery: Manual Removal Placenta Status: Delivered SCORES BABY A Heart Rate 1 min: >100 bpm Resp Effort 1 min: Good Cry Reflex Irritability 1 min: Cough/Sneeze/Pulls Away Muscle Tone 1 min: Active Motion Color 1 min: Blue/Pale Resuscitation Effort 1 min: Tactile Stimulation SCORE 1 MIN: 8 Heart Rate 5 min: >100 bpm Resp Effort 5 min: Good Cry Reflex Irritability 5 min: Cough/Sneeze/Pulls Away Muscle Tone 5 min: Active Motion Color 5 min: Body Fronton, Extremit Blue Resuscitation Effort 5 min: Tactile Stimulation SCORE 5 MIN: 9 INFORMATION BABY A Gestational Age at Delivery: 39.1 Gestational Status: Full Term- 39- 40.6 Weeks Infant Outcome : Liveborn Infant Condition : Stable Infant Sex: Female IDENTIFICATION/MEDS BABY A ID Band Number: [id number] ID Band Location: Right Leg; Left Arm Sensor Applied: Yes Sensor Number: [id number] Sensor Location : Cord Clamp Vitamin K Given : Not Given Erythromycin Given: Not Given WEIGHT/LENGTH BABY A Infant Birthweight (gm): 3720 Weight (lb): 8 Infant Weight (oz): 3 Length (in): 20.00 Infant Length (cm): 50.80 CORD INFORMATION BABY A No. Cord Vessels: 3 Nuchal Cord : N/A Cord Blood Taken: Yes Suction: Mouth; Nose ASSESSMENT BABY A Complications: None Physical Findings at Delivery: Within Normal Limits Infant Respirations: Appears Normal Farm Instructor/ALS Called : No Infant Care By: Gemini HURST/ Rafiq. RT Transferred To: Remains with Mother
== END 2019-05-09 14:15 | disposition home or self-care (01) | DRG 788 ==
LOC: OBT 21:50 → L-D 21:51 → OBT 23:05 → L-D 23:05 → PP1 05-06 18:22
PROVIDERS: ADMIT Obstetrics & Gynecology; ATTEND Obstetrics & Gynecology
PROC: 10D00Z1 Extraction of Products of Conception, Low, Open Approach (ICD-10-PCS; principal; 2019-05-06 12:00)
DX: O65.5 Obstructed labor due to abnormality of maternal pelvic organs (principal); O34.211 Maternal care for low transverse scar from previous cesarean delivery; Z3A.37 37 weeks gestation of pregnancy; Z37.0 Single live birth
CPT/HCPCS: 81001; 85025; 85610; 85730; 86592; 86850; 86900; 86901; 87340; 99464; G0463; J0456; J0690; J1100; J1170; J1885; J2175; J2270; J2274; J2370; J2405; J2590; J2765; J7120

== ENCOUNTER 2019-05-13 17:53 | Emergency (ER) | payer OTHER ==
[~2019-05-13] VITALS: Ht 154.9 cm; Wt 74.0 kg
[~2019-05-13 17:53] MED LIST changes: +ACET325T33 PO; +IBUP800T48 PO
[2019-05-13 18:34] VITALS: Ht 154.9 cm; Wt 74.0 kg
[2019-05-13] MEDS ORDERED: ACETAMINOPHEN 500 MG TAB PO STA (20:09)
[2019-05-13] MEDS ORDERED: ACET500C5 PO (20:27)
[2019-05-13] MEDS ORDERED: AMOX500C2 PO (20:27)
[2019-05-13] MEDS ORDERED: IBUP-1542 PO (20:27)
[2019-05-13] MEDS ORDERED: IBUPROFEN 600 MG TAB PO ONE (20:30)
--- NOTE | 2019-05-13 20:32 | ERD ---
ER Documentation Chief Complaint Chief Complaint BILAT EAR PAIN X'S 3 DAYS HPI Patient is a 24-year-old female presents the ER for concerns of bilateral ear pain fever x3 days. Patient states initially the pain was in her left ear however now she is having right ear pain. Patient denies taking any antipyretics today. Patient denies any nausea, vomiting, chest pain, shortness breath, cough, sore throat or abdominal pain. Patient denies recent water activities. No sick contacts. ROS All systems reviewed and are negative except as per history of present illness. Medications Home Meds Active Scripts Amoxicillin* (Amoxicillin*) 500 Mg Cap, 500 MG PO BID for 7 Days, CAP Prov:RYAN JARRETT PA-C 05/13/19 Acetaminophen* (Tylophen*) 500 Mg Capsule, 1 CAP PO Q6H PRN for PAIN AND OR ELEVATED TEMP, #20 CAP Prov:RYAN JARRETT PA-C 05/13/19 Ibuprofen* (Motrin*) 600 Mg Tab, 600 MG PO Q6, #30 TAB Prov:RYAN JARRETT PA-C 05/13/19 Ibuprofen* (Motrin*) 800 Mg Tab, 800 MG PO Q8, #60 TAB 0 Refills Prov:DRU REYES MD 05/08/19 Acetaminophen* (Tylenol*) 325 Mg Tablet, 650 MG PO Q6H PRN for MILD PAIN(1-3)OR ELEVATED TEMP, #60 TAB 0 Refills Prov:DRU REYES MD 05/08/19 Vit No.124/Iron/FA ( Vitamin Tablet) 1 Each Tablet, 1 EACH PO DAILY, #30 TAB Prov:WILLIAM VALLADARES 12/14/18 Reported Medications Folic Acid* (Folic Acid*) 1 Mg Tablet, 1 MG PO DAILY, TAB 10/22/16 Allergies Allergies: Coded Allergies: No Known Drug Allergies (Verified Allergy, Mild, 05/05/19) PMhx/Soc Medical and Surgical Hx: pt denies Medical Hx History of Surgery: Yes () Anesthesia Reaction: No Hx Neurological Disorder: No Hx Respiratory Disorders: No Hx Cardiac Disorders: No Hx Psychiatric Problems: No Hx Miscellaneous Medical Probl: No Hx Alcohol Use: No Hx Substance Use: No Hx Tobacco Use: No Smoking Status: Never smoker FmHx Family History: No diabetes Physical Exam Vitals Vital Signs Date Temp Pulse Resp B/P (MAP) Pulse Ox O2 O2 Flow FiO2 Time Delivery Rate 05/13/19 100.9 20:16 05/13/19 100.9 20:16 05/13/19 100.9 115 19 141/67 95 18:34 (91) Physical Exam GENERAL: Well-developed, well-nourished female. Appears in no acute distress. HEAD: Normocephalic, atraumatic. No deformities or ecchymosis. EYE: Pupils equal, round, and reactive to light. EOMs intact. No conjunctival erythema. No eye discharge. ENT: External ear without any masses or tenderness. Bilateral TMs are erythematous and bulging. No mastoid tenderness noted bilaterally. Nasal mucosa pink with no discharge. Oropharynx is pink without any tonsillar erythema or exudates. No uvula deviation. No kissing tonsils. NECK: Supple. No meningismus. Normal ROM of the neck. LUNG: Clear to auscultation bilaterally. No rhonchi, wheezing, rales or coarse breath sounds. HEART: Tachycardic. No murmurs, rubs or gallops. EXTREMITES: Equal pulses bilaterally. No peripheral clubbing, cyanosis or edema. No unilateral leg swelling. NEUROLOGIC: Alert and oriented to person, place and time. Moving all four extremities. 5/5 strength in all extremities. Normal speech. Steady gait SKIN: Normal color. Warm and dry. No rashes or lesions. Results 24 hrs Current Medications Medications Dose Sig/Vicki Start Time Status Last (Trade) Ordered Route PRN Stop Time Admin Dose Reason Admin Ibuprofen 600 mg ONCE ONCE 05/13/19 05/13/19 (Motrin) PO 20:30 20:16 05/13/19 20:31 1,000 mg ONCE STAT 05/13/19 DC 05/13/19 Acetaminophen PO 20:09 20:16 (Tylenol 05/13/19 20:10 Tab) Procedures/MDM MEDICAL DECISION MAKING: This is a 23-year-old female presents the ER for concerns of bilateral ear pain and fever x3 days. Vital signs were reviewed. Patient was febrile at initial presentation. Patient was given Tylenol and Motrin. Temperature noted to be downtrending.. Patient was not hypoxic. ENT exam was concerning for bilateral otitis media. Low suspicion for pneumonia, meningitis, sinusitis, otitis externa, mastoiditis, strep pharyngitis, epiglottitis or peritonsillar abscess. Low suspicion for sepsis. She was nontoxic, [id number] prior to discharge. PRESCRIPTIONS Tylenol, ibuprofen, amoxicillin DISCHARGE: At this time, patient is stable for discharge and outpatient management. Supportive therapies such as OTC throat lozenges, salt water gurgles, popsicles and jello discussed. I have instructed the patient to follow-up with his/her primary care physician in 1-2 days. I have instructed the patient to promptly return to the ER for any new or worsening symptoms including increased pain, swelling, fever, nausea, vomiting, weakness or difficulty breathing. The patient and/or family expressed understanding of and agreement with this plan. All questions were answered. Home care instructions were provided. Disclaimer: Inadvertent spelling and grammatical errors are likely due to EHR/dictation software use and do not reflect on the overall quality of patient care. Also, please note that the electronic time recorded on this note does not necessarily reflect the actual time of the patient encounter. Departure Diagnosis: Primary Impression: Otitis media Otitis media type: unspecified Chronicity: acute Qualified Codes: H66.90 - Otitis media, unspecified, unspecified ear Additional Impression: Fever Fever type: unspecified Qualified Codes: R50.9 - Fever, unspecified Patient Instructions: Otitis Media, Abx Tx (Adult) Additional Instructions: Call your primary care doctor TOMORROW for an appointment during the next 1-2 days.See the doctor sooner or return here if your condition worsens before your appointment time. RYAN JARRETT PA-C May 13, 2019 20:32
[2019-05-13 20:50] VITALS: BP 124/76; PULSE 98; RESP 20
== END 2019-05-13 20:50 | disposition home or self-care (01) ==
LOC: FTE 17:53
DX: H66.93 Otitis media, unspecified, bilateral (principal)
CPT/HCPCS: Z7502; Z7610; 99283